=== PATIENT | female | born 1940 | race Caucasian/White ===

== ENCOUNTER → 2016-07-21 | Outpatient (CLI) | payer OTHER ==
[~2016-07-21] MED LIST: ASCO500T16 PO; ASPEC81 PO; CHOL100027 PO; CLB200 PO; IBUP-103 PO; LEVO50TA6 PO; LUTE20TA PO; MINO1CAP25 PO; MULT-506 PO; OXYSR10 PO; POLY150C4 PO; RXC5 PO; SIMV80TA2 PO; SUMA50TA15 PO; [UNRECOGNIZED DRUG - CODE] PO
[2016-07-21 10:51] LABS: ALT/SGPT 58 U/L (12-78); AST/SGOT 34 U/L (15-37); BLOOD UREA NITROGEN 20 mg/dl (7-18); BUN/CREATININE RATIO 24.9 (10-20); CALCIUM 9.2 mg/dl (8.5-10.1); CARBON DIOXIDE 28 mmol/L (21-32); CHLORIDE 105 mmol/L (98-107); CHOLESTEROL 162 mg/dl (0-200); CREATININE 0.79 mg/dl (0.60-1.20); GLUCOSE 85 mg/dl (70-99); POTASSIUM 4.1 mmol/L (3.5-5.1); SODIUM 143 mmol/L (136-145); TRIGLYCERIDES 83 mg/dl (0-150); VERY LOW DENSITY LIPOPROT CALC 17 mg/dl
[2016-07-21 11:01] LABS: HDL CHOLESTEROL 81 mg/dl; LDL CHOLESTEROL CALCULATED 64 mg/dl
== END | disposition home or self-care (01) ==
LOC: C.LAB 09:04
DX: E78.5 Hyperlipidemia, unspecified (principal); M81.0 Age-related osteoporosis without current pathological fracture

== ENCOUNTER → 2016-09-26 | Outpatient (CLI) | payer OTHER ==
--- NOTE | 2016-09-29 15:49 | MAMMOGRAPHY REPORT ---
BILATERAL DIGITAL SCREENING MAMMOGRAM WITH CAD: 09/26/2016 CLINICAL HISTORY: Routine screening. Patient has no complaints. TECHNIQUE: Bilateral CC and MLO views were obtained. Current study was also evaluated with a Compu ter Aided Detection (CAD) system. COMPARISON: Comparison is made to exams dated: 09/24/2015 mammogram, 09/18/2014 mammogram, 09/12/2013 m ammogram, 09/10/2012 mammogram, 08/29/2011 mammogram, and 08/23/2010 mammogram - [facility] enter. BREAST COMPOSITION: There are scattered areas of fibroglandular density in both breasts. FINDINGS: There is a stable metallic biopsy marker in the central right breast. A few benign rim ca lcifications bilaterally. Stable asymmetries in each lateral breast. No new suspicious mass, archi tectural distortion or cluster of microcalcifications is seen. IMPRESSION: ACR BI-RADS CATEGORY 1: NEGATIVE There is no mammographic evidence of malignancy. A 1 year screening mammogram is recommended. The p atient will receive written notification of the results. Approximately 10% of breast cancers are not detected with mammography. A negative mammographic repor t should not delay biopsy if a clinically suggestive mass is present. Carley Bean M.D. ay/:09/29/2016 15:33:21 Labor Delivery Rn: Gia MOYER(Liz)(Madisyn), [facility] letter sent: Normal 1/2 BI-RADS Code: ACR BI-RADS Category 1: Negative
== END | disposition home or self-care (01) ==
LOC: C.MAMM 11:10
DX: Z12.31 Encounter for screening mammogram for malignant neoplasm of breast (principal)

== ENCOUNTER → 2016-11-07 | Outpatient (CLI) | payer OTHER ==
[~2016-11-07] MED LIST changes: -MINO1CAP25 PO; -[UNRECOGNIZED DRUG - CODE] PO
[2016-11-07 12:19] LABS: BASO ABS # 0.08 K/uL (0-0.2); COMPLETE YES; EOS % 2.7 %; HEMATOCRIT 45.8 % (37-47); IG% 0.1 %; LYMPH % 19.1 %; LYMPH ABS # 1.48 K/uL (1.2-3.4); MEAN CELL VOLUME 99.1 fL (80-100); MEAN CORPUSCULAR HEMOGLOBIN 31.6 pg (25-34); MEAN CORPUSCULAR HGB CONC 31.9 g/dl (32-36); MEAN PLATELET VOLUME 10.3 fL (7.4-10.4); MONO % 11.3 %; NEUT % 65.8 %; PLATELET COUNT 289 K/uL (130-400); RED BLOOD COUNT 4.62 M/uL (4.2-5.4); WHITE BLOOD COUNT 7.73 K/uL (4.8-10.8)
[2016-11-07 12:58] LABS: SYNOVIAL FLUID APPEARANCE BLOODY; SYNOVIAL FLUID COLOR AMBER; SYNOVIAL FLUID MONONUC RELAT 36.7 %; SYNOVIAL FLUID POLYNUC RELAT 63.3 %
== END | disposition home or self-care (01) ==
LOC: C.LAB 10:12
PROVIDERS: ATTEND Orthopaedic Surgery
DX: M25.461 Effusion, right knee (principal)

== ENCOUNTER → 2016-11-13 | Outpatient (CLI) | payer OTHER | END | disposition home or self-care (01) | LOC: C.MAMM 08:09 | DX: M85.851 Other specified disorders of bone density and structure, right thigh (principal); M85.852 Other specified disorders of bone density and structure, left thigh ==

== ENCOUNTER 2016-11-18 09:41 | Inpatient (IN) | payer OTHER ==
[2016-10-22 09:39] VITALS: BMI 29.0
--- NOTE | 2016-10-22 10:11 | PAT Medication Instructions ---
Service Date October 22, 2016. Current Home Medication List Ascorbic Acid (Ascorbic Acid), 500 MG PO QAM Cholecalciferol (Vitamin D 1000 Unit), 1,000 INTER.UNIT PO QPM Ibuprofen Tab (Advil), 400 MG PO PRN Levothyroxine Sodium (Levothyroxine Sodium), 1 TAB PO QAM Lutein (Lutein), 20 MG PO QPM Multivitamin (Multivitamin), 1 TAB PO QPM Polysaccharide Iron Complex (Ferrex 150), 150 MG PO QPM Simvastatin (Zocor), 80 MG PO QPM Sumatriptan Succinate (Imitrex), 50 MG PO PRN Medication Instructions For Your Scheduled Surgery Lutein (Lutein), 20 MG PO QPM (hold 1 week prior to surgery) - Hold the following medications the morning of surgery: Ascorbic Acid (Ascorbic Acid), 500 MG PO QAM Ibuprofen Tab (Advil), 400 MG PO PRN (not told to stop by surgeon) - Take the following medications the morning of surgery with a sip of water: Levothyroxine Sodium (Levothyroxine Sodium), 1 TAB PO QAM Sumatriptan Succinate (Imitrex), 50 MG PO PRN (only take if absolutely needed ) - Take the following medications as scheduled the night before surgery: Simvastatin (Zocor), 80 MG PO QPM Multivitamin (Multivitamin), 1 TAB PO QPM Polysaccharide Iron Complex (Ferrex 150), 150 MG PO QPM Cholecalciferol (Vitamin D 1000 Unit), 1,000 INTER.UNIT PO QPM If you have any questions please call us at [phone] or [phone] ( [place]) or [phone]
[2016-10-22 10:37] LABS: BASO % 1.4 %; COMPLETE YES; EOS % 2.7 %; HEMATOCRIT 43.2 % (37-47); IG% 0.3 %; LYMPH % 17.1 %; LYMPH ABS # 1.25 K/uL (1.2-3.4); MEAN CELL VOLUME 98.2 fL (80-100); MEAN CORPUSCULAR HEMOGLOBIN 32.7 pg (25-34); MEAN CORPUSCULAR HGB CONC 33.3 g/dl (32-36); MEAN PLATELET VOLUME 9.9 fL (7.4-10.4); MONO % 11.1 %; NEUT % 67.4 %; PLATELET COUNT 260 K/uL (130-400); WHITE BLOOD COUNT 7.29 K/uL (4.8-10.8)
[2016-10-22 10:38] LABS: URINE APPEARANCE CLEAR (CLEAR); URINE BILIRUBIN NEG (NEG); URINE COLOR YELLOW; URINE EPITHELIAL CELL AUTO 0-5 /lpf (0-5); URINE NITRITE NEG (NEG); URINE PH 5.5 (4.5-7.5); URINE SPECIFIC GRAVITY 1.011 (1.000-1.030); UROBILINOGEN NEG (NEG)
[2016-10-22 10:42] LABS: MANUAL MICROSCOPIC REQUIRED? NO; REVIEW REQ? NO
[2016-10-22 10:47] LABS: PROTHROMBIN TIME (PATIENT) 10.7 SECONDS (9.0-12.0)
--- NOTE | 2016-10-22 10:52 | DIAGNOSTIC IMAGING REPORT ---
CHEST PREADMISSION(PA/LAT) HISTORY: Preop. COMPARISON: None. FINDINGS: A few linear densities the left lung base favor scarring or subsegmental atelectasis. The lungs are otherwise clear. No pleural effusions. No pneumothorax. The heart is normal in size. IMPRESSION: Left basilar linear densities favor scarring or subsegmental atelectasis. Otherwise, no acute process within the chest. Electronically signed by: Carlito Rasmussen M.D. 10/22/2016 10:51 AM Dictated Date/Time: 10/22/2016 10:49 AM
[2016-10-22 10:53] LABS: BUN/CREATININE RATIO 22.3 (10-20); CALCIUM 9.2 mg/dl (8.5-10.1); CREATININE 0.71 mg/dl (0.60-1.20); POTASSIUM 3.9 mmol/L (3.5-5.1)
[2016-10-22 10:56] LABS: ESTIMATED AVERAGE GLUCOSE 111 mg/dl; HA1C FLAG Normal (Normal)
[~2016-11-18] VITALS: Ht 167.6 cm; Wt 85.0 kg
[2016-11-18] VITALS (9 sets, daily range): BP systolic 118–148; BP diastolic 68–97; PULSE 55–65; TEMP 34.9–36.8; O2SAT 95–98; Ht 167.6 cm; Wt 85.0 kg
[2016-11-18] MEDS: TRANEXAMIC ACID INJ 1,000 MG in SODIUM CHLORIDE 0.9% 100ML 100 ML IV SCH ×2 (06:30→11:51)
--- NOTE | 2016-11-18 08:22 | History & Physical Bridge Note ---
H&P Re-Evaluation Bridge Note: I have examined the patient, reviewed the History & Physical and in the interval since the performance of the History & Physical I have noted the following changes of clinical significance: No changes noted
[~2016-11-18 09:41] MED LIST changes: +ACETAMINOPHEN 500 MG TAB PO SCH; -ASPEC81 PO; +ATROPINE SULFATE 0.1 MG/ML 5ML SYR IV PRN; +BUPIVACAINE 0.25% 30 ML VIAL ONE; +BUPIVACAINE 0.5 % 5 MG/1 ML PF 10ML VIAL ONE; +CEFAZOLIN 2000 MG/60 ML D5W 60 ML IV SCH; -CLB200 PO; +CeleBREX 200 MG CAP PO SCH; +DEXAMETHASONE 4 MG TAB PO SCH; +EpHEDrine SULFATE INJ 50 MG/ML AMP IV PRN; +FAMOTIDINE 20 MG TAB PO SCH; +FENTANYL CITRATE INJ 50 MCG/1 ML 2 ML VIAL IV PRN; +GABAPENTIN 300 MG CAP PO SCH; +LACTATED RINGER'S 1000ML IV SCH; +LACTATED RINGER'S 500 ML IV SCH; +METOCLOPRAMIDE HCL 10 MG TAB PO SCH; +ONDANSETRON INJ 2 MG/ML 2 ML VIAL IV PRN; -OXYSR10 PO; +ROPIVACAINE 5MG/ML 30 ML 150 MG, BUPIVACAINE/EPINEPHR 0.5% MPF 30 ML, KETOROLAC TROMETH... INFIL SCH; -RXC5 PO
[2016-11-18] MEDS ORDERED: MIDAZOLAM HCL 1 MG/ML 2ML VIAL ONE ×3 (10:00→14:32)
[2016-11-18] MEDS ORDERED: PROPOFOL IV EMULSION 10 MG/ML 20 ML VIAL IV ONE ×2 (10:00→13:35)
[2016-11-18] MEDS ORDERED: LIDOCAINE HCL 2% 2 ML VIAL (20MG/ML) ONE (10:00)
--- NOTE | 2016-11-18 11:14 | HISTORY & PHYSICAL EXAMINATION ---
DATE OF ADMISSION: 11/18/2016 HISTORY OF PRESENT ILLNESS: The patient is a 76-year-old white female who presents with complaints of pain about her right knee. She had initial right total knee arthroplasty back in 2001. 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 She has had some intermittent ongoing complaints of pain, some loosening since that period of time over the last 10 years to 12 years and presents with subsidence of tibial component and an exam consistent with that of a loosened tibial component, rule out infected total knee arthroplasty residually from a low-grade infection from back at her initial poly change. She has failed attempts at conservative management, has obvious loosening and developed a varus alignment of her knee as well as complaints of pain and swelling about her knee. PAST MEDICAL HISTORY: Otherwise, significant for hypertension, hypercholesterolemia. FAMILY HISTORY: Unremarkable and noncontributory. SOCIAL HISTORY: The patient denies history of alcohol use, smoking or recreational drug use. ALLERGIES: None. OTHER MEDICAL HISTORY: The patient has history of previous wrist fracture with open reduction, internal fixation of the wrist fracture. The patient has no other orthopedic complaints. PAST MEDICAL HISTORY: Otherwise unremarkable. See history of present illness for pertinent positives. PHYSICAL EXAMINATION: GENERAL: Reveals a very pleasant 76-year-old white female, alert and oriented x3 in no acute distress. HEAD, EYES, EARS, NOSE, AND THROAT: Atraumatic, normocephalic. HEART: Noted to be regular at 72 beats per minute. No murmurs are noted. LUNGS: Clear. No rales, rhonchi, or wheezes noted. ABDOMEN: Soft, nontender, nondistended. Bowel sounds are present in all 4 quadrants. RECTAL: No rectal examination was performed. MUSCULOSKELETAL EXAMINATION: Consistent with that of a laxity of the right knee with obvious loosened tibial component with varus and valgus laxity to stress examination. The patient has x-rays which reveal there to be evidence of subchondral lucency with subsidence of the medial component of the tibia. Patellar bone stock is noted to be good. No other abnormalities were noted. A bone scan revealed there to be evidence of increased uptake on the tibia. The patient presents for arthrotomy, possible antibiotic spacer, possible revision total knee arthroplasty. Preoperative cultures were taken 2 weeks prior as well as sed rate, C-reactive protein testing was all done preoperatively as well. All labs are available through the hospital record.
[2016-11-18] MEDS ORDERED: ORTHO JOINT ANESTHETIC ONE (11:19)
[2016-11-18] MEDS ORDERED: POVIDONE-IODINE OP SOLN 30 ML BTL ONE (11:19)
[2016-11-18] MEDS ORDERED: BACITRACIN 50000 UNIT VIAL ONE (11:19)
[2016-11-18] MEDS ORDERED: VANCOMYCIN HCL 1000MG/20ML VIAL ONE (11:21)
--- NOTE | 2016-11-18 12:12 | HISTORY & PHYSICAL EXAMINATION ---
DATE OF ADMISSION: 11/18/2016 ADDENDUM: The patient is a 76-year-old female scheduled for revision total knee arthroplasty today. The lab results of her sed rate were 3. Her serum C-reactive protein lab was within normal limits. Her aspirate from 11/07/2016 with culture and Gram stain revealed no organisms, no growth. Her bone scans have been unchanged from last bone scan 2005 with regard to any type of increased activity. The patient is afebrile, has no other complaints with regard to any type of infectious etiology, has obvious loosening of the tibial component with subsidence of varus alignment of the knee. Plan is for intraoperative Gram stain as well as intraoperative frozen sections, possible revision total knee arthroplasty versus antibiotic spacer. At this point the labs would suggest that she will be a candidate for total joint revision. This is an addendum to the H&P.
--- NOTE | 2016-11-18 14:40 | [facility] Post Operative Brief Note ---
Immediate Operative Summary Operative Date Nov 18, 2016. Pre-Operative Diagnosis Loosened Tibial Component Right Total Knee Post-Operative Diagnosis Loosened Tibial Component Right Total Knee Procedure(s) Performed Right Total Knee Revision using [facility] elias neph Surgeon Dr. Adams Culture Room Worker Surgeon(s) DRAKE Sheets Estimated Blood Loss 15 ml Findings loosenen subsided tibial components poly failure with broken postloose patella with poly failure Specimens Culture--Synovial Fluid Right Knee--sent for STAT gram stain, routine culture and sensitivity, aerobes and anaerobes--sent to lab at 1240 Frozen Section #1-- Cement Interface Right Femur--sent to lab at 1255 Frozen Section #2--Cement Tibial Interface Right--sent to lab at 1305 A. Removed Hardware Right Knee Complication(s) None Disposition Recovery Room / PACU
[2016-11-18] MEDS ORDERED: ZOLPIDEM TARTRATE 5 MG TAB PO PRN (14:45)
[2016-11-18] MEDS ORDERED: SUMATRIPTAN SUCCINATE 50 MG TAB PO PRN (14:45)
[2016-11-18] MEDS ORDERED: SOD PHOSPHATE/SOD BIPHOSPHATE ENEMA 132 ML BTL PR PRN (14:45)
[2016-11-18] MEDS ORDERED: BISACODYL 10 MG SUPP PR PRN (14:45)
[2016-11-18] MEDS ORDERED: METOCLOPRAMIDE HCL INJ 5 MG/ML 2 ML VIAL IV PRN (14:45)
[2016-11-18] MEDS ORDERED: ALUMINUM/MAGNESIUM/SIMETH (MAALOX MAX) 30 ML UDC PO PRN (14:45)
[2016-11-18] MEDS ORDERED: HYDROCODONE/ACETAMOPHEN 5/325MG TAB PO PRN (14:45)
[2016-11-18] MEDS ORDERED: MAGNESIUM HYDROXIDE SUSP 30 ML UDC PO PRN (14:45)
[2016-11-18] MEDS ORDERED: DiphenhydrAMINE HCL 50 MG/ML VIAL IV PRN (14:45)
--- NOTE | 2016-11-18 15:11 | OPERATIVE REPORT ---
DATE OF OPERATION: 11/18/2016 PREOPERATIVE DIAGNOSES: Aseptic loosening with poly failure, right total knee arthroplasty with tibial component subsidence and patellar component loosening. POSTOPERATIVE DIAGNOSES: Same. PROCEDURE: Revision total knee arthroplasty to a Legion total knee arthroplasty with revision stem size 5, femur 18 mm x 160 mm stem, 4 mm offset at 5:30 with a 10 mm posterolateral augment, tibia 5 with a 25 mm constrained poly, 15 mm stem x 160 mm with an offset of 4 mm set at 12 and a 35 mm patella. SURGEON: Dr. Adams. POPPED CORN OVEN ATTENDANT: Adarsh JUAN, who was necessary for prepping, draping, retraction, wound closure of deep fascia, subQ and skin and was necessary for the case. ESTIMATED BLOOD LOSS: 15 mL. COMPLICATIONS: None. TOURNIQUET TIME: 2 hours. HISTORY OF PRESENT ILLNESS: The patient presents as a very pleasant 76-year-old female who in 2001, had undergone total knee arthroplasty, had a poly failure and a poly change in 2004 with an encore total knee arthroplasty, today presents with subsidence for a revision. Preoperative cultures including Gram stain revealed no organisms and cultures revealed no growth. Sed rate was 3, C-reactive protein was within normal limits. Intraoperative tissue was sent for white cells per high power field. Intraoperative Gram stain revealed there to be no evidence of organisms. DESCRIPTION OF PROCEDURE: After proper prepping and draping of the right lower extremity, an anterior midline incision was made. A medial parapatellar incision was made. The components were removed. The tibial component with subsidence was loosened, the femoral component was also relatively loose, the patellar component also had fibrous material, that was removed. A thorough and complete synovectomy was performed as well as debridement of all necrotic tissue. The components having been removed were subsequently trialed to the above sizes. The tibial component was placed, had excellent fill and stability. Medial and lateral collateral ligaments were noted to be stable in extension, mid flexion and flexion. The femoral trials were placed and noted to have evidence of excellent stability. The patellar component was also removed and was replaced with a size 35 as noted above. After having performed a thorough irrigation and debridement, lavage, all particulate matter and debris was removed. The components were assembled on the back table and subsequently cemented in the following order, tibia, femur and patella. Excellent stability in both extension and flexion, mid flexion was noted. All particulate matter and debris was removed. The medial parapatellar incision was closed with #1 Vicryl, subQ was closed with 2-0 Vicryl, skin was closed with skin clips. A sterile compression dressing was placed. The patient was taken to the recovery room in stable condition. I attest to the content of the Intraoperative Record and any orders documented therein. Any exception s are noted below.
[2016-11-18] MEDS ORDERED: MoRPHine SULFATE 2 MG/ML CARP IV PRN ×2 (15:30→16:45)
[2016-11-18] MEDS ORDERED: SUMATRIPTAN SUCCINATE 25 MG TAB PO ONE (15:33)
--- NOTE | 2016-11-18 15:52 | DIAGNOSTIC IMAGING REPORT ---
RIGHT KNEE 1 OR 2 VIEWS ROUTINE CLINICAL HISTORY: AP/LATERAL IN PACU RIGHT KNEE Right joint replacement COMPARISON: None. DISCUSSION: Evidence for lung stem right knee revision type procedure. Good contact between prosthetic and underlying bone. Surgical drains are in position. Expected soft tissue postoperative change. IMPRESSION: Anatomic alignment status post total right knee revision. Electronically signed by: Ramiro Ramos M.D. 11/18/2016 3:51 PM Dictated Date/Time: 11/18/2016 3:50 PM
--- NOTE | 2016-11-18 16:12 | Anesthesiology Progress Note ---
Anesthesia Post Op Note Date & Time Nov 18, 2016 at 16:12 Vital Signs Pain Intensity: 0 Vital Signs Past 12 Hours Date Time Temp Pulse Resp B/P (MAP) Pulse Ox O2 Delivery O2 Flow Rate FiO2 11/18/16 16:04 54 17 97 11/18/16 16:04 56 17 11/18/16 16:01 125/73 11/18/16 15:59 52 15 98 11/18/16 15:59 53 15 11/18/16 15:56 129/72 11/18/16 15:54 57 17 11/18/16 15:54 56 17 96 11/18/16 15:51 115/72 11/18/16 15:49 58 14 11/18/16 15:49 57 14 96 11/18/16 15:47 37.1 57 20 120/73 (85) 96 Nasal Cannula 2 11/18/16 15:46 120/73 11/18/16 15:44 56 14 11/18/16 15:44 56 14 97 11/18/16 15:43 57 18 96 11/18/16 15:43 58 18 11/18/16 15:41 121/80 11/18/16 15:38 57 18 96 11/18/16 15:38 58 18 11/18/16 15:37 126/78 11/18/16 15:36 66 24 96 11/18/16 15:36 66 24 11/18/16 15:31 60 16 116/75 97 11/18/16 15:31 60 16 11/18/16 15:26 60 17 11/18/16 15:26 61 17 121/74 96 11/18/16 15:21 65 16 11/18/16 15:21 64 16 115/81 97 11/18/16 15:17 119/77 11/18/16 15:16 37.0 62 16 119/77 94 Nasal Cannula 2 11/18/16 10:05 36.5 65 18 142/87 96 Room Air Notes Mental Status: alert / awake / arousable, participated in evaluation Pt Amnestic to Procedure: Yes Nausea / Vomiting: adequately controlled Pain: adequately controlled Airway Patency, RR, SpO2: stable & adequate BP & HR: stable & adequate Hydration State: stable & adequate Neuraxial Anesthesia: was administered, sensory block is resolving Anesthetic Complications: no major complications apparent
[2016-11-18] MEDS ORDERED: MoRPHine SULFATE 4 MG/ML 1 ML CARP\\VIAL IV PRN (16:45)
[2016-11-18] MEDS ORDERED: MoRPHine SULFATE 10 MG/ML CARP/VIAL IV PRN (16:45)
[2016-11-18] MEDS: SODIUM CHLORIDE 0.9% 1000ML 1,000 ML IV SCH ×2 (17:08→23:57)
[2016-11-18] MEDS: OXYCODONE HCL IR 5 MG TAB (IMMEDIATE RELEASE) PO PRN (17:12)
[2016-11-18] MEDS: FERROUS GLUCONATE 324 MG TAB PO SCH (17:52)
[2016-11-18] MEDS: ONDANSETRON INJ 2 MG/ML 2 ML VIAL IV PRN (18:32)
[2016-11-18] MEDS: CEFAZOLIN IV 2,000 MG in DEXTROSE 5% 50ML 50 ML IV SCH (20:18)
[2016-11-18] MEDS ORDERED: TRANEXAMIC ACID INJ 1,000 MG in SODIUM CHLORIDE 0.9% 100ML 100 ML IV ONE (21:00)
[2016-11-18] MEDS: DOCUSATE SODIUM 100 MG CAP PO SCH (21:00)
[2016-11-18] MEDS: MULTIVITAMIN TAB PO SCH (21:10)
[2016-11-18] MEDS: ASPIRIN 81 MG ECTAB PO SCH (21:10)
[2016-11-18] MEDS: OXYCODONE HCL 10 MG TABCR (OXYCONTIN) PO SCH (21:10)
[2016-11-18] MEDS: SIMVASTATIN 80 MG TAB PO SCH (21:11)
[2016-11-18] MEDS: SENNA 8.6 MG TAB PO SCH (21:11)
[2016-11-19] MEDS: CEFAZOLIN IV 2,000 MG in DEXTROSE 5% 50ML 50 ML IV SCH (03:19)
[2016-11-19 03:30] VITALS: BP 124/72; PULSE 61; TEMP 36.6; O2SAT 92
[2016-11-19] MEDS: LEVOTHYROXINE 50 MCG TAB PO SCH (05:27)
[2016-11-19 06:17] LABS: HEMATOCRIT 37.2 % (37-47); MEAN CELL VOLUME 98.4 fL (80-100); MEAN CORPUSCULAR HGB CONC 32.5 g/dl (32-36); MEAN PLATELET VOLUME 10.1 fL (7.4-10.4); PLATELET COUNT 206 K/uL (130-400); RED BLOOD COUNT 3.78 M/uL (4.2-5.4); WHITE BLOOD COUNT 14.22 K/uL (4.8-10.8)
[2016-11-19 07:41] VITALS: BP 113/74; PULSE 60; TEMP 36.6; O2SAT 94
--- NOTE | 2016-11-19 08:14 | Anesthesiology Progress Note ---
Anesthesia Post Op Note Date & Time Nov 19, 2016 at 08:14 Vital Signs Pain Intensity: 4.0 Vital Signs Past 12 Hours Date Time Temp Pulse Resp B/P (MAP) Pulse Ox O2 Delivery O2 Flow Rate FiO2 11/19/16 07:41 36.6 60 19 113/74 (87) 94 Room Air 11/19/16 03:30 36.6 61 18 124/72 (89) 92 Room Air 11/18/16 23:54 Room Air 11/18/16 22:47 36.7 63 16 118/75 (89) 95 Room Air Notes Mental Status: alert / awake / arousable, participated in evaluation Pt Amnestic to Procedure: Yes Nausea / Vomiting: adequately controlled Pain: adequately controlled Airway Patency, RR, SpO2: stable & adequate BP & HR: stable & adequate Hydration State: stable & adequate Neuraxial Anesthesia: was administered, sensory block resolved Anesthetic Complications: no major complications apparent
[2016-11-19] MEDS: FERROUS GLUCONATE 324 MG TAB PO SCH ×3 (08:19→17:45)
[2016-11-19] MEDS: DOCUSATE SODIUM 100 MG CAP PO SCH ×2 (08:20→20:45)
[2016-11-19] MEDS: PANTOprazole SOD 40 MG TAB PO SCH (08:20)
[2016-11-19] MEDS: ASPIRIN 81 MG ECTAB PO SCH ×2 (08:20→20:45)
[2016-11-19] MEDS: ONDANSETRON INJ 2 MG/ML 2 ML VIAL IV PRN (08:25)
[2016-11-19] MEDS: OXYCODONE HCL 10 MG TABCR (OXYCONTIN) PO SCH ×2 (08:25→20:46)
[2016-11-19] MEDS: OXYCODONE HCL IR 5 MG TAB (IMMEDIATE RELEASE) PO PRN (08:26)
--- NOTE | 2016-11-19 08:59 | Orthopedic Progress Note ---
Orthopedic Progress Note Date of Service Nov 19, 2016. Subjective Post OP Day: 1 Reports: feeling well, Denies: chest pain, SOB, nausea / vomiting, light headedness, calf pain Objective calves soft nontender, N/V intact, dressing C/D/I, A&O x3, toes mobile, hemovac drainage (100ml latest shift) Date Time Temp Pulse Resp B/P (MAP) Pulse Ox O2 Delivery O2 Flow Rate FiO2 11/19/16 07:41 36.6 60 19 113/74 (87) 94 Room Air 11/19/16 07:10 Room Air 11/19/16 03:30 36.6 61 18 124/72 (89) 92 Room Air 11/18/16 23:54 Room Air 11/18/16 22:47 36.7 63 16 118/75 (89) 95 Room Air 11/18/16 19:19 36.5 55 16 127/74 (91) 97 Nasal Cannula 2.0 11/18/16 18:45 97 Nasal Cannula 2.0 11/18/16 18:15 36.8 56 16 119/72 (88) 97 Nasal Cannula 2.0 11/18/16 17:14 36.3 65 16 148/97 (114) 98 Nasal Cannula 2.0 11/18/16 16:45 34.9 63 16 130/84 (99) 97 Nasal Cannula 2.0 11/18/16 16:36 36.4 60 18 120/68 (85) 98 Nasal Cannula 2.0 11/18/16 16:35 98 Nasal Cannula 2.0 11/18/16 16:33 98 Nasal Cannula 2.0 11/18/16 16:04 54 17 97 11/18/16 16:04 56 17 11/18/16 16:01 125/73 11/18/16 15:59 52 15 98 11/18/16 15:59 53 15 11/18/16 15:56 129/72 11/18/16 15:54 57 17 11/18/16 15:54 56 17 96 11/18/16 15:51 115/72 11/18/16 15:49 58 14 11/18/16 15:49 57 14 96 11/18/16 15:47 37.1 57 20 120/73 (85) 96 Nasal Cannula 2 11/18/16 15:46 120/73 11/18/16 15:44 56 14 11/18/16 15:44 56 14 97 11/18/16 15:43 57 18 96 11/18/16 15:43 58 18 11/18/16 15:41 121/80 11/18/16 15:38 57 18 96 11/18/16 15:38 58 18 11/18/16 15:37 126/78 11/18/16 15:36 66 24 96 11/18/16 15:36 66 24 11/18/16 15:31 60 16 116/75 97 11/18/16 15:31 60 16 11/18/16 15:26 60 17 11/18/16 15:26 61 17 121/74 96 11/18/16 15:21 65 16 11/18/16 15:21 64 16 115/81 97 11/18/16 15:17 119/77 11/18/16 15:16 37.0 62 16 119/77 94 Nasal Cannula 2 11/18/16 10:05 36.5 65 18 142/87 96 Room Air Laboratory Results 24 Hours: Test 11/19/16 05:47 Hematocrit 37.2 % Hemoglobin 12.1 g/dL Additional Notes: Intra op Cx NGTD Assessment & Plan Assessment: POD 1 s/p Right TKA Revision Plan: PT/OT Planning for OPPT at [facility] Follow cx's but previous cx's negative, ESR/CRP normal. Inhouse Planning Pain Management: Oxycontin, Morphine, PO Tylenol, Oxy IR DVT Prophylaxis: TEDs, SCDs, ASA Discharge Planning Discharge Planning: home with oppt Pain Management: Oxycontin, IV Tylenol, PO Tylenol, Oxy IR DVT Prophylaxis: TEDs, ASA Therapy: Physical Therapy
[2016-11-19] MEDS ORDERED: MULTIVITAMIN TAB PO SCH (09:00)
--- NOTE | 2016-11-19 09:08 | Discharge Instructions ---
Discharge Instructions Date of Service Nov 19, 2016. Admission Reason for Admission: Mechanical Loosening of Internal Right Knee Prosth Discharge Discharge Diagnosis / Problem: Aseptic Loosening Right TKA Discharge Goals Goal(s): Decrease discomfort, Improve function Activity Recommendations Activity Limitations: per Instructions/Follow-up section Weightbearing Status: Right weightbearing (as tolerated) . Instructions / Follow-Up Instructions / Follow-Up ACTIVITY RECOMMENDATIONS: SELF CARE INSTRUCTIONS AFTER TOTAL KNEE REPLACEMENT A. You may need to continue a physical therapy program after discharge from the hospital. There are several options available to you. Your doctor will assist you in selecting the best one for you. 1. An out-patient facility 2 to 3 times a week for therapy or home therapy. 2. Continue working on all exercises taught to you in the hospital. Your goals should be to increase bending of your knee to 90 degrees and beyond and to fully straighten your knee. B. You may progress at your own pace from walking with a walker or crutches to a cane; then to no assistive devices. C. Make walking a part of your daily routine. Be up as much as comfortable with rest periods throughout the day. Rest with leg elevation is very important. Use the ice wrap frequently for the first 3-4 weeks. D. There are no restrictions on activities. You may ride in a car, shop, participate in youth counselor and all social activities. E. Wear the long elastic stockings (CHRIS hose) 20 hours a day for 2 weeks after surgery. They can be removed several times a day for laundering and for a bath. F. You may shower, no tub baths until cleared by your doctor. SPECIAL CARE INSTRUCTIONS: VERY IMPORTANT TO READ AND REVIEW A. There are a few signs you need to watch for after you are home. Call [facility] if you notice any of the followin. Increased severe knee pain. Some pain is expected especially when you exercise. 2. Increased swelling in your leg or knee; pain or swelling of the calf muscle in either lower leg. 3. Any fluid drainage from the incision. 4. Shortness of breath or chest pain. B. Please call [facility] at if you have any concerns or questions about your operation or recovery. The doctor or his nurse will return your call promptly. C. You must take antibiotics before dental work, bladder, bowel or other surgery. Your doctor will provide you with a permanent care to carry describing this precaution. IMPORTANT: * REMEMBER TO TAKE ASPIRIN, 81 MG, TWICE DAILY FOR 4 WEEKS UNLESS OTHERWISE DIRECTED. THIS IS YOUR BLOOD THINNER. * HIGH RISK PATIENTS MAY BE PRESCRIBED A STRONGER BLOOD THINNER. THIS WILL BE PROVIDED AT DISCHARGE. * CALL IF INCREASED PAIN, REDNESS, DRAINAGE OR FEVER GREATER THAT 101. * WEAR CHRIS HOSE 20 HOURS PER DAY FOR 2 WEEKS. * Prevena- This is a large suction dressing covering your incision. This will help pull any excess drainage from the wound and allow your incision to heal properly. You may shower with this if you can keep the unit outside of the shower. If any bleeding or leakage is noted please call your doctor's office. This will remain on your incision for 7 days and then should be removed. This can be done yourself or by the home nursing staff if applicable. The entire unit is disposable once removed. Once removed, keep incision clean and dry. If redness or drainage is noted, please call your surgeon. . FOLLOW UP VISIT: If appointment is not already scheduled: Please call [facility] to make a follow-up appointment for 2 weeks after your surgery at . Current Hospital Diet Patient's current hospital diet: Regular Diet Discharge Diet Recommended Diet: Regular Diet Procedures Procedures Performed: Right Total Knee Revision using [facility] elias nephew Pending Studies Studies pending at discharge: yes List of pending studies: Intra operative cultures; Current results No Growth to Date Laboratory Results Hemoglobin A1c Test 10/22/16 10:15 Range/Units Estimated Average Glucose 111 mg/dl Hemoglobin A1c 5.5 4.5-5.6 % Medical Emergencies . Who to Call and When: Medical Emergencies: If at any time you feel your situation is an emergency, please call 911 immediately. . Non-Emergent Contact Non-Emergency issues call your: Surgeon Call Non-Emergent contact if: temperature is above 101.5, your pain is not controlled, your pain is worsening, wound has increased drainage, wound has increased redness . "Provider Documentation" section prepared by Adarsh Navarro. . VTE Core Measure Inpt VTE Proph given/why not?: Other Anticoagulation, T.E.D. Stockings, SCD's [place] Drug Monitoring Program Search Results: patient reviewed within database, no issues identified
[2016-11-19] MEDS: SODIUM CHLORIDE 0.9% 1000ML 1,000 ML IV SCH (10:24)
[2016-11-19 15:39] VITALS: BP 111/69; PULSE 71; TEMP 36.5; O2SAT 97
[2016-11-19] MEDS: TRAMADOL HCL 50 MG TAB PO PRN (16:55)
[2016-11-19] MEDS: KETOROLAC TROMETHAMINE 15 MG/ML VIAL IV PRN (18:20)
[2016-11-19] MEDS: SENNA 8.6 MG TAB PO SCH (21:08)
[2016-11-19] MEDS: SIMVASTATIN 80 MG TAB PO SCH (21:08)
[2016-11-19] MEDS: MULTIVITAMIN TAB PO SCH (21:08)
[2016-11-19 22:48] VITALS: BP 117/71; PULSE 70; TEMP 36.7; O2SAT 93
[2016-11-20] MEDS: LEVOTHYROXINE 50 MCG TAB PO SCH (05:26)
[2016-11-20 06:20] VITALS: BP 146/83; PULSE 79; TEMP 37; O2SAT 93
[2016-11-20 06:22] LABS: BUN/CREATININE RATIO 25.4 (10-20); CALCIUM 7.7 mg/dl (8.5-10.1); CREATININE 0.55 mg/dl (0.60-1.20); POTASSIUM 4.1 mmol/L (3.5-5.1)
[2016-11-20] MEDS: FERROUS GLUCONATE 324 MG TAB PO SCH ×2 (07:43→12:07)
[2016-11-20] MEDS: PANTOprazole SOD 40 MG TAB PO SCH (07:44)
[2016-11-20] MEDS: OXYCODONE HCL 10 MG TABCR (OXYCONTIN) PO SCH (07:44)
[2016-11-20] MEDS: TRAMADOL HCL 50 MG TAB PO PRN (07:49)
[2016-11-20 08:00] VITALS: BP 150/80; PULSE 66; TEMP 36.6; O2SAT 96
[2016-11-20 08:03] VITALS: O2SAT 96
[2016-11-20] MEDS: DOCUSATE SODIUM 100 MG CAP PO SCH (09:19)
[2016-11-20] MEDS: ASPIRIN 81 MG ECTAB PO SCH (09:20)
[2016-11-20] MEDS: KETOROLAC TROMETHAMINE 15 MG/ML VIAL IV PRN (09:22)
[2016-11-20 12:35] VITALS: BP 150/80; PULSE 66; TEMP 36.6; O2SAT 96
--- NOTE | 2016-11-20 12:59 | Orthopedic Progress Note ---
Orthopedic Progress Note Date of Service Nov 20, 2016. Subjective Post OP Day: 2 Reports: feeling well Objective calves soft nontender, N/V intact, dressing C/D/I (Prevena in place), toes mobile Date Time Temp Pulse Resp B/P (MAP) Pulse Ox O2 Delivery O2 Flow Rate FiO2 11/20/16 12:35 36.6 66 14 96 Room Air 11/20/16 08:03 96 Room Air 11/20/16 08:00 36.6 66 14 150/80 (103) 96 Room Air 11/20/16 07:35 Room Air 11/20/16 06:20 37.0 79 16 146/83 (104) 93 Room Air 11/19/16 23:00 Room Air 11/19/16 22:48 36.7 70 16 117/71 (86) 93 Room Air 11/19/16 17:15 Room Air 11/19/16 15:39 36.5 71 18 111/69 (83) 97 Room Air Assessment & Plan Assessment: POD 2 s/p Right TKA Revision Plan: PT/OT Planning for OPPT at [facility] Follow cx's but previous cx's negative, ESR/CRP normal. Inhouse Planning Pain Management: Oxycontin, Morphine, PO Tylenol, Oxy IR DVT Prophylaxis: TEDs, SCDs, ASA Discharge Planning Discharge Planning: home with oppt Pain Management: Oxycontin, IV Tylenol, PO Tylenol, Oxy IR DVT Prophylaxis: TEDs, ASA Therapy: Physical Therapy
[2016-11-20] MEDS ORDERED: RXC5 PO (13:00)
[2016-11-20] MEDS ORDERED: CLB200 PO (13:00)
[2016-11-20] MEDS ORDERED: ASPEC81 PO (13:00)
[2016-11-20] MEDS ORDERED: OXYSR10 PO (13:00)
--- NOTE | 2016-11-24 14:08 | DISCHARGE SUMMARY ---
DISCHARGE DIAGNOSIS: Aseptic loosening of right TKA. SECONDARY DIAGNOSES: Hypertension, hypercholesterolemia. CONSULTS: None. COMPLICATIONS: None. PROCEDURES: Right total knee revision by Dr. Adams on 11/18/2016. BRIEF HISTORY: As dictated in history and physical. HOSPITAL SUMMARY: The patient was admitted on the above-noted date and had the above-noted surgery performed which she tolerated well. On her first postoperative day, she was feeling well and had no complaints. Calves were soft and nontender, neurovascularly intact. Dressings clean, dry and intact. Toes were mobile. Vital signs were stable and she was afebrile. Hemoglobin was 12.1 and she was started on physical therapy protocol and continued on DVT prophylaxis and pain management. Intraoperative cultures that were taken during the procedure were no growth to date. The patient was planning for outpatient PT upon discharge and she was continued on her protocol. The rest of her stay was essentially uneventful and by 11/20/2016 she was feeling well. Calves were soft and nontender, neurovascularly intact. Dressings clean, dry and intact. Toes were mobile. Vital signs were stable and she did have a noted bump in her systolic blood pressure of 150 at one point in time but was otherwise remaining stable. She was progressing with her physical therapy and it was felt that she was stable for discharge to home. For further review, please see chart. LAB AND X-RAY DATA: As per chart. DISCHARGE INSTRUCTIONS: The patient was discharged to home in satisfactory condition on 11/20/2016. DIET: Regular. ACTIVITY: Weightbearing as tolerated right lower extremity. Follow TK instruction sheets and special care instructions as noted. Follow up with Dr. Adams in 2 weeks. The patient to call for appointment if one has not been made for you. DISCHARGE MEDICATIONS: Aspirin 81 mg p.o. b.i.d., Celebrex 200 mg p.o. b.i.d., OxyContin 10 mg p.o. q. 12 hours, oxycodone 5-10 mg p.o. q. 4-6 hours p.r.n. pain. Resume home meds as listed and continue medication section and stop taking ibuprofen.
[2016-11-24] MEDS ORDERED: CeleBREX 200 MG CAP PO SCH (21:00)
== END 2016-11-20 14:05 | disposition home or self-care (01) | DRG 468 ==
LOC: C.ACU 09:41 → C.3E 10:00 → ENRESERV 15:40
PROVIDERS: ADMIT Orthopaedic Surgery; ATTEND Orthopaedic Surgery
PROC: 0SRC0J9 Replacement of Right Knee Joint with Synthetic Substitute, Cemented, Open Approach (ICD-10-PCS; principal; 2016-11-18 11:30)
PROC: 0SPC09Z Removal of Liner from Right Knee Joint, Open Approach (ICD-10-PCS; principal; 2016-11-18 11:30)
PROC: 0SPC0JZ Removal of Synthetic Substitute from Right Knee Joint, Open Approach (ICD-10-PCS; principal; 2016-11-18 11:30)
PROC: 0SUV09Z Supplement Right Knee Joint, Tibial Surface with Liner, Open Approach (ICD-10-PCS; principal; 2016-11-18 11:30)
DX: T84.092A Other mechanical complication of internal right knee prosthesis, initial encounter (principal); Y79.2 Prosthetic and other implants, materials and accessory orthopedic devices associated with adverse incidents; M25.261 Flail joint, right knee; E78.00 Pure hypercholesterolemia, unspecified; I83.10 Varicose veins of unspecified lower extremity with inflammation; M19.90 Unspecified osteoarthritis, unspecified site; G43.909 Migraine, unspecified, not intractable, without status migrainosus; M85.80 Other specified disorders of bone density and structure, unspecified site; Z79.899 Other long term (current) drug therapy

== ENCOUNTER → 2017-01-19 | Outpatient (CLI) | payer OTHER ==
[~2017-01-19] MED LIST changes: -ACETAMINOPHEN 500 MG TAB PO SCH; +ASPEC81 PO; -ATROPINE SULFATE 0.1 MG/ML 5ML SYR IV PRN; -BUPIVACAINE 0.25% 30 ML VIAL ONE; -BUPIVACAINE 0.5 % 5 MG/1 ML PF 10ML VIAL ONE; -CEFAZOLIN 2000 MG/60 ML D5W 60 ML IV SCH; +CLB200 PO; -CeleBREX 200 MG CAP PO SCH; -DEXAMETHASONE 4 MG TAB PO SCH; -EpHEDrine SULFATE INJ 50 MG/ML AMP IV PRN; -FAMOTIDINE 20 MG TAB PO SCH; -FENTANYL CITRATE INJ 50 MCG/1 ML 2 ML VIAL IV PRN; -GABAPENTIN 300 MG CAP PO SCH; -IBUP-103 PO; -LACTATED RINGER'S 1000ML IV SCH; -LACTATED RINGER'S 500 ML IV SCH; -METOCLOPRAMIDE HCL 10 MG TAB PO SCH; -ONDANSETRON INJ 2 MG/ML 2 ML VIAL IV PRN; +OXYSR10 PO; -ROPIVACAINE 5MG/ML 30 ML 150 MG, BUPIVACAINE/EPINEPHR 0.5% MPF 30 ML, KETOROLAC TROMETH... INFIL SCH; +RXC5 PO
[2017-01-19 10:47] LABS: ALT/SGPT 91 U/L (12-78); AST/SGOT 81 U/L (15-37)
== END | disposition home or self-care (01) ==
LOC: C.LAB 09:14
DX: E78.5 Hyperlipidemia, unspecified (principal)

== ENCOUNTER → 2017-02-25 | Outpatient (CLI) | payer OTHER | END | disposition home or self-care (01) | LOC: C.LAB 09:14 | DX: M85.80 Other specified disorders of bone density and structure, unspecified site (principal); E78.5 Hyperlipidemia, unspecified; R74.0 Nonspecific elevation of levels of transaminase and lactic acid dehydrogenase [LDH] ==

== ENCOUNTER → 2017-06-17 | Day surgery (SDC) | payer OTHER ==
[~2017-06-17] VITALS: Ht 170.2 cm; Wt 86.4 kg
[~2017-06-17] MED LIST changes: -ASPEC81 PO; +ASPI1TAB4 PO; +CALC600T37 PO; -CLB200 PO; -OXYSR10 PO; -RXC5 PO
[2017-06-17 08:52] VITALS: Ht 170.2 cm; Wt 86.4 kg
--- NOTE | 2017-06-17 09:19 | Endo History and Physical ---
History & Physical Date of Service: Jun 17, 2017. Chief Complaint: HX OF COLON POLYPS Referring Physician: DR. JUAN PANDYA History of Present Illness 77 yo CF who presents for colonoscopy secondary to history of colon polyps. Past Surgical History Hx Cardiac Surgery: No Hx Internal Defibrillator: No Hx Pacemaker: No Hx Abdominal Surgery: No Hx of Implantable Prosthesis: No Hx Post-Op Nausea and Vomiting: No Hx Cancer Surgery: No Hx Thoracic Surgery: No Hx Orthopedic: Yes (RT TKA AND X2 REVISIONS, LT WRIST SURGERY) Hx Urinary Tract Surgery: No Family History Polyp Social History Smoking Status: Never Smoker Hx Substance Use: No Hx Alcohol Use: Yes (1 GLASS WINE/NIGHT) Allergies Coded Allergies: Oxycodone (Verified Adverse Reaction, Unknown, GI UPSET, 05/26/17) Current Medications Reported Home Medications Medications Dose Route/Sig Max Daily Dose Days Date Category Janet Back & Body Pain Ex (Aspirin-Caffeine) 1 Tab Tab 1 Tab PO QAM 05/26/17 Reported Calcium 600 Mg Tab 1 Tab PO DAILY 05/26/17 Reported Levothyroxine Sodium 50 Mcg Tab 1 Tab PO QAM 10/22/16 Reported Multivitamin (Multivitamins) Tab 1 Tab PO QPM 10/22/16 Reported Imitrex (Sumatriptan Succinate) 50 Mg Tab 50 Mg PO PRN PRN 10/22/16 Reported Ferrex 150 (Polysaccharide Iron Complex) 150 Mg Cap 150 Mg PO QPM 03/10/15 Reported Vitamin D 1000 Unit (Cholecalciferol) 1,000 Unit Cap 1,000 Inter.unit PO QPM 03/10/15 Reported Ascorbic Acid 500 Mg Tab 500 Mg PO QAM 03/10/15 Reported Lutein 20 Mg Tab 20 Mg PO QPM 03/10/15 Reported Zocor (Simvastatin) 80 Mg Tab 80 Mg PO QPM 03/10/15 Reported Vital Signs Weight (Kilograms): 86.36 Height (Feet): 5 Height (Inches): 7 Date Time Temp Pulse Resp B/P (MAP) Pulse Ox O2 Delivery O2 Flow Rate FiO2 06/17/17 08:54 36.4 64 16 157/90 (112) 96 Room Air Physical Exam General Appearance: WD/WN, no apparent distress Respiratory/Chest: Auscultation: breath sounds normal Cardiovascular: Heart Auscultation: RRR Abdomen: Bowel Sounds: normal Inspection & Palpation: soft, non-distended, no tenderness, guarding & rebound Assessment and Plan Assessment: 77 yo CF who presents for colonoscopy secondary to history of colon polyps. Plan: Proceed with colonoscopy.
--- NOTE | 2017-06-17 10:04 | Discharge Instructions ---
Endoscopy Patient Instructions Date / Procedure(s) Performed Jun 17, 2017. Colonoscopy Allergy Information Coded Allergies: Oxycodone (Verified Adverse Reaction, Unknown, GI UPSET, 05/26/17) Discharge Date / Findings Jun 17, 2017. Colon polyp Diverticulosis Internal hemorrhoids Medication Instructions OK to resume all medications today as prescribed Reported Home Medications Medications Dose Route/Sig Max Daily Dose Days Date Category Janet Back & Body Pain Ex (Aspirin-Caffeine) 1 Tab Tab 1 Tab PO QAM 05/26/17 Reported Calcium 600 Mg Tab 1 Tab PO DAILY 05/26/17 Reported Levothyroxine Sodium 50 Mcg Tab 1 Tab PO QAM 10/22/16 Reported Multivitamin (Multivitamins) Tab 1 Tab PO QPM 10/22/16 Reported Imitrex (Sumatriptan Succinate) 50 Mg Tab 50 Mg PO PRN PRN 10/22/16 Reported Ferrex 150 (Polysaccharide Iron Complex) 150 Mg Cap 150 Mg PO QPM 03/10/15 Reported Vitamin D 1000 Unit (Cholecalciferol) 1,000 Unit Cap 1,000 Inter.unit PO QPM 03/10/15 Reported Ascorbic Acid 500 Mg Tab 500 Mg PO QAM 03/10/15 Reported Lutein 20 Mg Tab 20 Mg PO QPM 03/10/15 Reported Zocor (Simvastatin) 80 Mg Tab 80 Mg PO QPM 03/10/15 Reported Provider Instructions Activity Restrictions - No exercising or heavy lifting for 24 hours. - Do not drink alcohol the day of the procedure. - Do not drive a car or operate machinery until the day after the procedure. - Do not make any important decisions or sign important papers in 24 hours after the procedure. Following Day: - Return to full activity which may include returning to work/school. Diet Start your diet with liquids and light foods (jello, soup, juice, toast). Then eat your usual diet if not nauseated. Treatment For Common After Affects For mild abdominal pain, bloating, or excessive gas: - Rest - Eat lightly - Lie on right side Follow-Up Information Follow-up with DR. JUAN PANDYA as scheduled Anesthesia Information What You Should Know You have had a procedure that required some medicine to reduce anxiety and discomfort. This treatment is called moderate sedation. After receiving the treatment, you may be sleepy, but you will be able to breathe on your own. The effects of the treatment may last for several hours. Follow these instructions along with Activity/Diet recommendations noted above: * Do NOT do anything where dizziness or clumsiness would be dangerous. * Rest quietly at home today, then you can be up and about tomorrow. * Have a responsible person stay with you the rest of today. * You may have had an I.V. today. If so, you may take the dressing off later today. Recommendations Call your doctor if: * Trouble breathing * Continuous vomiting for more than 24 hours * Temperature above 101 degrees * Severe abdominal pain or bloating * Pain not relieved by pain medicine ordered * There is increased drainage or redness from any incision * A large amount of rectal bleeding greater than 2-3 tablespoons. (If you had a polyp/s removed or have hemorrhoids, a small amount of blood - from the rectum is to be expected.) * You have any unanswered questions or concerns. IN THE EVENT OF A SERIOUS EMERGENCY, GO TO THE NEAREST EMERGENCY ROOM Your discharge instructions were prepared by provider Palu Schrader. Patient Instructions Signature Page Yessica Dhillon Patient (or Guardian) Signature/Date: I have read and understand the instructions given to me by my caregivers. Caregiver/RN/Doctor Signature/Date: The above-named patient and/or guardian has received patient instructions on this date. + Original Patient Signature Page (only) stays with chart. Please make copy for patient.
--- NOTE | 2017-06-17 10:11 | GI REPORT ---
Procedure Date: 06/17/2017 9:31 AM Procedure: Colonoscopy Indications: High risk colon cancer surveillance: Personal history of colonic polyps Medicines: Monitored Anesthesia Care Complications: No immediate complications. Estimated Blood Loss: Estimated blood loss: none. Procedure: Pre-Anesthesia Assessment: - Prior to the procedure, a History and Physical was performed, and patient medications and allergies were reviewed. The patient's tolerance of previous anesthesia was also reviewed. The risks and benefits of the procedure and the sedation options and risks were discussed with the patient. All questions were answered, and informed consent was obtained. Prior Anticoagulants: The patient has taken aspirin, last dose was 1 day prior to procedure. ASA Grade Assessment: II - A patient with mild systemic disease. After reviewing the risks and benefits, the patient was deemed in satisfactory condition to undergo the procedure. After I obtained informed consent, the scope was passed under direct vision. Throughout the procedure, the patient's blood pressure, pulse, and oxygen saturations were monitored continuously. The Scope was introduced through the anus and advanced to the terminal ileum. The colonoscopy was performed without difficulty. The patient tolerated the procedure well. The quality of the bowel preparation was good. The terminal ileum, ileocecal valve, appendiceal orifice, and rectum were photographed. Findings: A 4 mm polyp was found in the ascending colon. The polyp was sessile. The polyp was removed with a cold snare. Resection and retrieval were complete. Multiple small-mouthed diverticula were found in the sigmoid colon. Non-bleeding internal hemorrhoids were found during retroflexion. The hemorrhoids were small. Impression: - One 4 mm polyp in the ascending colon, removed with a cold snare. Resected and retrieved. - Diverticulosis in the sigmoid colon. - Non-bleeding internal hemorrhoids. Recommendation: - Resume previous diet. - Continue present medications. - Repeat colonoscopy for surveillance based on pathology results. - Return to primary care physician as previously scheduled. Paul Schrader, DO 06/17/2017 10:10:39 AM This report has been signed electronically. Note Initiated On: 06/17/2017 9:31 AM I attest to the content of the Intraoperative Record and orders documented therein, exceptions below
[2017-06-17 10:28] VITALS: BP 157/99; PULSE 62; O2SAT 98
--- NOTE | 2017-06-17 10:58 | Anesthesiology Progress Note ---
Anesthesia Post Op Note Date & Time Jun 17, 2017 at 10:58 Vital Signs Pain Intensity: 0 Vital Signs Past 12 Hours Date Time Temp Pulse Resp B/P (MAP) Pulse Ox O2 Delivery O2 Flow Rate FiO2 06/17/17 10:28 62 18 157/99 (118) 98 Room Air 06/17/17 10:13 60 16 127/82 (97) 98 Room Air 06/17/17 09:58 64 16 93/60 (71) 98 Room Air 06/17/17 08:54 36.4 64 16 157/90 (112) 96 Room Air Notes Mental Status: alert / awake / arousable, participated in evaluation Pt Amnestic to Procedure: Yes Nausea / Vomiting: adequately controlled Pain: adequately controlled Airway Patency, RR, SpO2: stable & adequate BP & HR: stable & adequate Hydration State: stable & adequate Anesthetic Complications: no major complications apparent
== END | disposition home or self-care (01) ==
LOC: C.GI 08:30
PROVIDERS: ATTEND Internal Medicine
DX: Z12.11 Encounter for screening for malignant neoplasm of colon (principal); D12.2 Benign neoplasm of ascending colon; K57.30 Diverticulosis of large intestine without perforation or abscess without bleeding; K64.8 Other hemorrhoids; Z86.010 Personal history of colon polyps; M19.90 Unspecified osteoarthritis, unspecified site; Z88.5 Allergy status to narcotic agent; Z96.651 Presence of right artificial knee joint; Z98.890 Other specified postprocedural states; Z83.71 Family history of colonic polyps

== ENCOUNTER → 2017-07-17 | Outpatient (CLI) | payer OTHER ==
[2017-07-17 10:11] LABS: BASO % 1.5 %; BASO ABS # 0.09 K/uL (0-0.2); EOS % 3.2 %; EOS ABS # 0.19 K/uL (0-0.5); HEMOGLOBIN 14.8 g/dL (12.0-16.0); IG# 0.02 K/uL (0.00-0.02); LYMPH % 24.2 %; LYMPH ABS # 1.43 K/uL (1.2-3.4); MEAN CELL VOLUME 96.7 fL (80-100); MEAN CORPUSCULAR HEMOGLOBIN 32.5 pg (25-34); MEAN CORPUSCULAR HGB CONC 33.6 g/dl (32-36); MEAN PLATELET VOLUME 10.3 fL (7.4-10.4); MONO ABS # 0.59 K/uL (0.11-0.59); NEUT % 60.8 %; NEUT ABS # 3.59 K/uL (1.4-6.5); PLATELET COUNT 219 K/uL (130-400); RED CELL DISTRIBUTION WIDTH CV 13.4 % (11.5-14.5); RED CELL DISTRIBUTION WIDTH SD 47.7 fL (36.4-46.3); WHITE BLOOD COUNT 5.91 K/uL (4.8-10.8)
[2017-07-17 10:39] LABS: ALT/SGPT 43 U/L (12-78); AST/SGOT 42 U/L (15-37); BLOOD UREA NITROGEN 15 mg/dl (7-18); CALCIUM 8.9 mg/dl (8.5-10.1); CARBON DIOXIDE 26 mmol/L (21-32); CHOLESTEROL 155 mg/dl (0-200); CREATININE 0.68 mg/dl (0.60-1.20); GLUCOSE 89 mg/dl (70-99); POTASSIUM 4.1 mmol/L (3.5-5.1); SODIUM 140 mmol/L (136-145)
[2017-07-17 10:49] LABS: LDL CHOLESTEROL CALCULATED 73 mg/dl
== END | disposition home or self-care (01) ==
LOC: C.LAB 09:19
DX: E78.5 Hyperlipidemia, unspecified (principal); E03.9 Hypothyroidism, unspecified; M19.90 Unspecified osteoarthritis, unspecified site

== ENCOUNTER → 2017-09-29 | Outpatient (CLI) | payer OTHER ==
[~2017-09-29] MED LIST changes: -ASPI1TAB4 PO
--- NOTE | 2017-09-29 14:24 | MAMMOGRAPHY REPORT ---
BILATERAL DIGITAL SCREENING MAMMOGRAM TOMOSYNTHESIS WITH CAD: 09/29/2017 CLINICAL HISTORY: Routine screening. TECHNIQUE: Breast tomosynthesis in addition to standard 2D mammography was performed. Current study was also evaluated with a Computer Aided Detection (CAD) system. COMPARISON: Comparison is made to exams dated: 09/26/2016 mammogram, 09/24/2015 mammogram, 09/18/2014 m ammogram, 09/12/2013 mammogram, 09/10/2012 mammogram, and 08/29/2011 mammogram - [facility]. BREAST COMPOSITION: There are scattered areas of fibroglandular density in both breasts. FINDINGS: There is stable focal asymmetry in the 6:00/central left breast, and stable asymmetry in th e lateral right breast. A stable metallic biopsy marker clip is identified in the central right [address] and there are a few benign round and rim calcifications. No suspicious mass, architectural distor tion or cluster of microcalcifications is seen. IMPRESSION: ACR BI-RADS CATEGORY 1: NEGATIVE There is no mammographic evidence of malignancy. A 1 year screening mammogram is recommended. The pa tient will receive written notification of the results. Approximately 10% of breast cancers are not detected with mammography. A negative mammographic report should not delay biopsy if a clinically suggestive mass is present. Carley Bean M.D. ay/:09/29/2017 12:18:06 Pipe Layer: Lazara MARMOLEJO)(Madisyn), [facility] letter sent: Normal 1/2 BI-RADS Code: ACR BI-RADS Category 1: Negative
== END | disposition home or self-care (01) ==
LOC: C.MAMM 10:48
DX: Z12.31 Encounter for screening mammogram for malignant neoplasm of breast (principal)

== ENCOUNTER 2022-10-21 06:08 | Observation (INO) ==
--- NOTE | 2022-09-23 11:58 | History & Physical Report ---
Date of Service September 23, 2022 date of surgery: 10/21/22 Procedure: Left Total Knee Arthroplasty Possible Stem and Wedges Surgeon: Russell Adams Assessment & Plan (1) Arthritis of knee, left: Plan: Risk and benefits of the procedure discussed in detail, she would like to proceed with a left total knee replacement. She has tried and failed conservative measures as well as has had previous ORIF of a tibial plateau fracture with subsequent removal of the hardware. Will place on aspirin 81 mg twice a day for 1 month postop, would recommend in-home physical therapy upon discharge otherwise has no other questions or concerns The risks and benefits have been discussed including, but not limited to, risk of infection, nerve injury, stiffness, loss of motion, failure to improve, etc. Reasonable outcomes and options of treatment were discussed. An explanation of appropriate alternatives to the procedure that may be advantageous were discussed and their risks and benefits, as well as the risks and benefits of not proceeding with treatment. I offered to answer any additional inquiries concerning the treatment involved. All the patient's questions were answered. The patient is agreeable, understanding of the treatment plan and alternatives, and wishes to proceed with the treatment plan. History of Present Illness Chief Complaint: left knee pain Primary Care Provider: Astrid Hubbard MD Yessica is a pleasant 82-year-old female who presented for preop evaluation prior to left total knee replacement. She has a longstanding history of left knee pain and has failed conservative measures including previous viscosupplementation as well as corticosteroid injections. She has a history of ORIF of a proximal tibial plateau fracture by Dr. Ross in 2018. Her fracture is healed well, she has recently undergone hardware removal from the surgery and is doing well postoperatively. She states her pain in her knee is affecting her activities including walking standing using stairs, rates her current pain as a 7 out of 10. She is tried oral anti-inflammatories and Tylenol without relief at this point time is failed conservative measures like proceed with a left total knee replacement. Allergies Allergy/AdvReac Type Severity Reaction Status Date / Time oxycodone AdvReac Unknown GI UPSET Verified 09/03/22 07:50 Home Medications Medication Instructions Recorded Confirmed Type calcium carbonate 500 mg calcium 500 mg PO BID 05/08/18 07/23/22 History (1,250 mg) tablet (Calcium 500) lutein 20 mg capsule 20 mg PO HS 12/01/18 03/29/23 History multivitamin 1 tab PO HS 09/27/18 09/03/22 History ibuprofen 200 mg capsule 400 mg PO Q6H PRN Pain 03/06/21 09/03/22 History polysaccharide iron complex 150 mg 150 mg PO HS 03/13/21 09/03/22 History iron capsule (Ferrex) ascorbic acid (vitamin C) 500 mg 500 mg PO PM 01/21/22 09/03/22 History capsule ergocalciferol (vitamin D2) 1,250 1,000 unit PO HS 05/13/22 09/03/22 History mcg (50,000 unit) capsule (Vitamin D2) acetaminophen 650 mg 650 mg PO Q12H PRN Pain 07/09/22 09/03/22 History tablet,extended release (Tylenol Arthritis Pain) aspirin-caffeine 500 mg-32.5 mg 1 tab PO UD PRN Pain 07/09/22 09/03/22 History tablet (Janet Back and Body) levothyroxine 75 mcg tablet 75 mcg PO QAM 07/09/22 09/03/22 History rosuvastatin 40 mg tablet (Crestor) 40 mg PO HS 07/09/22 09/03/22 History sumatriptan succinate 50 mg tablet 50 mg PO DAILY PRN Migraine 09/03/22 09/03/22 History (Imitrex) Headache Past Med/Surg History Medical History Arthritis of knee, left Hyperlipidemia Hypothyroidism Migraine headache Osteoporosis Surgical History History of section X 3 History of colonoscopy History of open reduction and internal fixation (ORIF) procedure LEFT WRIST (around 2010) History of open reduction and internal fixation (ORIF) procedure LEFT KNEE 05/10/18 LMA#4 + PNB. History of total knee arthroplasty RIGHT X 3 Family History Father Hearing loss Sister Stroke Brother Stomach cancer Mother Breast cancer Other No family history of adverse response to anesthesia No family history of bleeding disorder No known health problems Denies family history of Ovarian cancer Prostate cancer Myocardial infarction Colorectal cancer Social History Smoking Status: Never smoker Second Hand Exposure: Yes; Hx Alcohol Use: Yes Alcohol type: wine Alcohol Intake Frequency: 4 or More x per/Week Alcohol Intake Frequency Comment: 1 glass per day Hx Substance Use: No Preferred Language: Slovenian Communication Ability: Effective Visual Impairment: Limited Hearing Ability: Normal Manager Crisis Required: No Beliefs That Will Affect Care: None marital status: / Current Living Situation: Alone current occupational status: retired How many Children do You have: 4 Feels Safe at Home: Yes Childhood Exposure to Second-Hand Smoke: No Dental Care, Regularly: Yes Physical Activity Frequency: Daily Seatbelt Use: always Sunscreen Use: Yes Assistive Devices: Brace/Splint/Immobilizer and Contacts Review of Systems Review of Systems: All systems reviewed & are unremarkable except as noted in HPI & below Constitutional: no fever, no chills and no sweats Respiratory: no cough and no dyspnea Cardiovascular: no chest pain, no dyspnea and no orthopnea Gastrointestinal: no abdominal pain, no nausea and no vomiting Musculoskeletal: as per Subjective / HPI Physical Exam Physical Exam: HT: 5ft 6in WT: 90.4kg Constitutional: WD/WN, vitals as above no acute distress Respiratory: normal respiratory effort, lungs clear to auscultation no respiratory distress, no labored breathing and does not use accessory muscles Cardiovascular: RRR, no murmur, no edema Gastrointestinal (Abdomen): normal bowel sounds, soft, nontender, no hepatosplenomegaly Musculoskeletal: Knee: + knee abnormal to inspection (LEFT KNEE), + effusion (+1 effusion), + surgical incision (well healed incisions), + limited ROM of knee (ROM 0/3/110), + knee ROM with crepitation, + joint line tenderness (medial joint line) and + Riaz's sign positive; no deformity, no skin erythema, no ecchymosis, no valgus laxity, no varus laxity, anterior drawer test negative, Chris's sign negative and pivot shift test negative Results & Data Results & Data Diagnostic Findings AP and lateral of the left knee show advanced degenerative changes of the left knee with lafw-so-egtf changes, joint space narrowing osteophyte formation subchondral sclerosis overall valgus deformity. She is status post removal of hardware from her proximal tibial plateau
--- NOTE | 2022-10-13 09:51 | Anesthesiology Consultation ---
Date of Service October 13, 2022 Assessment & Plan (1) Encounter for pre-operative examination: Plan - check CBC with diff STAT am DOS. - Pt now acceptable to proceed given interval from positive COVID test 08/2022. -PCP 07/23/22 MN:"...preoperative evaluation prior to L TKA with Dr Adams of [facility] on 09/03/22...Based on the above RCRI assessment, the patient has a 0.4% risk of cardiac , nonfatal GA or nonfatal cardiac arrest Patient is a low risk patient for a intermediate risk procedure...This patient's ARISCAT score is 16 for a Low risk procedure = 1.6% risk for perioperative pulmonary complications (such as hypoxemia, hypercapnia, atelectasis, pulmonary infection, prolonged mechanical ventilatory needs). These risks do not preclude the patient from a medically necessary surgical procedure...This patient is medically optimized and at an acceptable risk to proceed with the planned surgical procedure without further cardiac workup..." - Outpatient joint assessment: Patient is currently scheduled for inpatient pathway. If re-evaluated pending system levels during current pandemic/surgeon requests outpatient pathway, patient is not acceptable candidate for outpatient joint program from anesthesia standpoint. - COVID screening: Per credit assessment analyst on 10/13/2022: Travel screen negative, no known COVID-19 positive contacts or current COVID-19 related symptoms in past 2 weeks. To surgeon's discretion if preop COVID testing is needed. Chart Review Chart Review: Acceptable Risk for Surgery and Patient NOT seen in Pre Admission Testing History Surgery Operation Date: 10/21/22 07:15 Proposed Procedures p Left Total Knee Arthroplasty Possible Stem and Wedges - Russell Adams DO Height/Weight Height: 5 ft 6.5 in Weight: 87.997 kg Allergies Allergy/AdvReac Type Severity Reaction Status Date / Time oxycodone AdvReac Unknown GI UPSET Verified 10/13/22 08:30 Medications Home Medications Medication Instructions Recorded Confirmed Last Taken calcium carbonate 500 mg calcium 500 mg PO BID 05/08/18 10/13/22 Unknown (1,250 mg) tablet (Calcium 500) lutein 20 mg capsule 20 mg PO HS 05/08/18 10/13/22 08/20/22 multivitamin 1 tab PO HS 09/27/18 10/13/22 09/02/22 19:00 ibuprofen 200 mg capsule 400 mg PO Q6H PRN Pain 03/06/21 10/13/22 Unknown polysaccharide iron complex 150 mg 150 mg PO HS 03/13/21 10/13/22 09/02/22 19:00 iron capsule (Ferrex) ascorbic acid (vitamin C) 500 mg 500 mg PO PM 01/21/22 10/13/22 09/02/22 19:00 capsule ergocalciferol (vitamin D2) 1,250 1,000 unit PO HS 05/13/22 10/13/22 09/02/22 19:00 mcg (50,000 unit) capsule (Vitamin D2) acetaminophen 650 mg 650 mg PO Q12H PRN Pain 07/09/22 10/13/22 09/03/22 05:30 tablet,extended release (Tylenol Arthritis Pain) aspirin-caffeine 500 mg-32.5 mg 1 tab PO UD PRN Pain 07/09/22 10/13/22 08/20/22 tablet (Janet Back and Body) rosuvastatin 40 mg tablet (Crestor) 40 mg PO HS 07/09/22 10/13/22 09/02/22 19:00 sumatriptan succinate 50 mg tablet 50 mg PO DAILY PRN Migraine 09/03/22 10/13/22 08/29/22 (Imitrex) Headache levothyroxine 75 mcg tablet 75 mcg PO QAM #90 tabs 09/25/22 10/13/22 Unknown Past Medical History Medical History Arthritis of knee, left History of COVID-19 09/03/22 > tested positive dos > had no symptoms at all Hyperlipidemia Hypothyroidism Migraine headache Osteoporosis Past Family History Family History Father Hearing loss Sister Stroke Brother Stomach cancer Mother Breast cancer Other No family history of adverse response to anesthesia No family history of bleeding disorder No known health problems Denies family history of Ovarian cancer Prostate cancer Myocardial infarction Colorectal cancer Past Surgical History Surgical History History of section X 3 History of colonoscopy History of open reduction and internal fixation (ORIF) procedure LEFT WRIST (around 2010) History of open reduction and internal fixation (ORIF) procedure LEFT KNEE 05/10/18 LMA#4 + PNB. History of total knee arthroplasty RIGHT X 3 Social History Smoking Status: Never smoker Do You Dip or Chew Tobacco: No Hx Alcohol Use: Yes Alcohol type: wine alcohol intake frequency: 0-2 drinks per day Alcohol Intake Frequency Comment: 1 glass wine per night Hx Substance Use: No substance use type: does not use Lab Results Anesthesia Preop Results Results Anesthesia Widget: Na 138 mmol/L (136-145) 10/07/22 K 4.4 mmol/L (3.5-5.1) 10/07/22 Cl 104 mmol/L (98-107) 10/07/22 CO2 26 mmol/L (21-32) 10/07/22 BUN 18 mg/dl (6-23) 10/07/22 Creat 0.66 mg/dl (0.6-1.2) 10/07/22 Glucose Level 116 mg/dl (70-99(Fasting)) H 10/07/22 PT 10.9 Seconds (9.0-12.0) 10/07/22 PTT 26.2 Seconds (21.0-31.0) 10/07/22 INR 1.0 (0.9-1.1) 10/07/22 HA1c 5.6 % (4.5-5.6) 10/07/22 Urine Color Dark Yellow 10/07/22 Urine Appearance Clear (Clear) 10/07/22 Urine pH 5.0 (4.5-7.5) 10/07/22 Urine Specific Emmalena 1.031 (1.000-1.030) H 10/07/22 Urine Protein 2+ (Negative) H 10/07/22 Urine Glucose (UA) Negative (Negative) 10/07/22 Urine Ketones Trace (Negative) H 10/07/22 Urine Blood 3+ (Negative) H 10/07/22 Urine Nitrite Negative (Negative) 10/07/22 Urine Bilirubin Negative (Negative) 10/07/22 Urine Urobilinogen Negative (Negative) 10/07/22 Urine Leukocyte Esterase Negative (Negative) 10/07/22 Urine WBC (Auto) 1-5 /hpf (0-5) 10/07/22 Urine RBC (Auto) 10-30 /hpf (0-4) H 10/07/22 Urine Hyaline Casts (Auto) 5-10 /lpf (0-5) H 10/07/22 Urine Epithelial Cells (Auto) 10-20 /lpf (0-5) H 10/07/22 Urine Bacteria (Auto) Negative (Negative) 10/07/22 COVID-19 PCR POSITIVE (Negative) A* 09/03/22 SARS-CoV-2, RNA, NAAT POSITIVE (NEGATIVE) A* 09/03/22 Blood Type A Positive 10/07/22 Antibody Screen NEGATIVE 10/07/22 Testing Laboratory Results Surgeon's office made aware of abnormal UA. Electrocardiogram Date: 12/30/21 NSR, rate 66 bpm Chest X-Ray Date: 07/10/22 No pneumothorax. No pleural effusions. Linear densities within the lung bases favor subsegmental atelectasis or scarring. Otherwise, the lungs are clear. The heart is normal in size. Calcifications again noted within the aortic knob. No acute process
[~2022-10-21 06:08] MED LIST changes: +ACETAMINOPHEN 500 MG TAB PO SCH; -ASCO500T16 PO; -CALC600T37 PO; -CHOL100027 PO; +CeleBREX 200 MG CAP PO SCH; +FAMOTIDINE 20 MG TAB PO SCH; +GABAPENTIN 300 MG CAP PO SCH; -LEVO50TA6 PO; +LR 500ML BOLUS, THEN 15ML/HR IV SCH; -LUTE20TA PO; +METOCLOPRAMIDE HCL 10 MG TABLET PO SCH; -MULT-506 PO; -POLY150C4 PO; +ROPIVACAINE 0.5% HCL/PF 150 MG, BUPIVACAINE 0.75% MPF 20 ML, EPINEPHrine 30MG/30ML (OR ... INSTIL SCH; -SIMV80TA2 PO; -SUMA50TA15 PO; +TRANEXAMIC ACID 1,000 MG **IV Intra-op IV SCH; +TRANEXAMIC ACID 1,000 MG **IV Pre-op IV SCH; +ceFAZolin 2000MG 2,000 MG/15 ML SYR IV SCH; +dexAMETHasone 4 MG TAB PO SCH
[2022-10-21] MEDS ORDERED: EPINEPHrine INJ 1 MG/ML AMP ONE (06:35)
[2022-10-21] MEDS ORDERED: DEXAMETHASONE SOD INJ 4 MG/ML VIAL ONE (06:35)
[2022-10-21] MEDS ORDERED: BUPIVACAINE 0.25% PF 30 ML VIAL ONE (06:35)
[2022-10-21] MEDS ORDERED: BUPIVACAINE 0.5 % 5 MG/1 ML PF 10ML VIAL ONE (06:35)
[2022-10-21 07:09] LABS: Basophils # (auto) 0.07 K/uL (0-0.2); Basophils % (auto) 1.2 %; Eosinophils # (auto) 0.21 K/uL (0-0.50); Eosinophils % (auto) 3.6 %; Hematocrit (blood only) 41.1 % (37.0-47.0); Hemoglobin 13.4 g/dl (12.0-16.0); Immature Granulocytes # (auto) 0.01 K/uL (0.01-0.20); Immature Granulocytes % (auto) 0.2 %; Lymphocytes # (auto) 1.13 K/uL (1.2-3.4); Lymphocytes % (auto) 19.3 %; Mean Corpuscular Hgb Conc 32.6 g/dL (32.0-36.0); Mean Corpuscular Volume 98.1 fL (80.0-100.0); Mean Platelet Volume 9.8 fL (9.4-12.4); Monocytes # (auto) 0.59 K/uL (0.11-0.59); Monocytes % (auto) 10.1 %; Neutrophils # (auto) 3.83 K/uL (1.40-6.50); Neutrophils % (auto) 65.6 %; Platelet Count 229 K/uL (130-400); RDW Coefficient of Variation 12.7 % (11.5-14.5); RDW Standard Deviation 45.7 fL (36.4-46.3); Red Blood Count 4.19 M/uL (4.20-5.40); White Blood Count 5.84 K/ul (4.8-10.8)
[2022-10-21] MEDS ORDERED: MIDAZOLAM HCL 1 MG/ML 2ML VIAL ONE (07:58)
[2022-10-21] MEDS ORDERED: LIDOCAINE 2% 2 ML VIAL/AMP(20MG/ML) INFIL ONE (07:59)
[2022-10-21] MEDS ORDERED: fentaNYL citrate PF 100 MCG/2 ML VIAL ONE (07:59)
[2022-10-21] MEDS ORDERED: ONDANSETRON INJ 2 MG/ML 2 ML VIAL ONE (07:59)
[2022-10-21] MEDS ORDERED: PROPOFOL IV EMULSION 10 MG/ML 20 ML VIAL IV ONE ×2 (07:59→10:45)
--- NOTE | 2022-10-21 08:40 | History & Physical Bridge Note ---
Date of Service October 21, 2022 History & Physical Bridge Note I have examined the patient, reviewed the History & Physical and in the interval since the performance of the History & Physical I have noted the following changes of clinical significance: no changes noted
[2022-10-21] MEDS ORDERED: fentaNYL citrate PF 100 MCG/2 ML VIAL IV PRN (08:49)
[2022-10-21] MEDS ORDERED: ePHEDrine sulfate 50 MG/ML AMP IV PRN (08:49)
[2022-10-21] MEDS ORDERED: ONDANSETRON INJ 2 MG/ML 2 ML VIAL IV PRN ×2 (08:49→13:21)
[2022-10-21] MEDS ORDERED: ATROPINE SULFATE 0.1 MG/ML 10ML SYR IV PRN (08:49)
[2022-10-21] MEDS ORDERED: ORTHO JOINT ANESTHETIC ONE (09:18)
[2022-10-21] MEDS ORDERED: ePHEDrine sulfate 50 MG/ML AMP ONE (10:02)
--- NOTE | 2022-10-21 11:09 | Operative Report ---
Post Operative Report Pre & Post Diagnosis Operation Date: 10/21/22 08:55 Pre-Op Diagnosis: Primary Osteoarthritis of Left Knee Post-Op Diagnosis: Primary Osteoarthritis of Left Knee I identified the patient and participated in the time-out.: Yes Procedure Operation Date: 10/21/22 08:55 Actual Procedures p Left Total Knee Arthroplasty (Left utilizing Ramires & Neph journey 2 patient matched total knee arthroplasty femur 6 tibia 6 poly 12 constrained patella 32 oval) - Russell Adams DO Surgeon Russell Adams DO Machine Operator Hay Stacker Adarsh JUAN Estimated Blood Loss 5 Findings Consistent with Post-Op Diagnosis Patient presents with severe end-stage tricompartmental DJD 12 degree valgus alignment with eburnated [id number] mobilize bone subchondral cystic changes marginal osteophytes moderate to large effusion Specimens Bone and cartilage Drains Medium bore Hemovac Anesthesia Type MAC Spinal Regional Complications none Disposition Accompanied Patient To Recovery: No Disposition: Recovery Room Indications Patient presents with severe end-stage DJD valgus alignment subchondral sclerosis marginal osteophytes patient failed attempted corticosteroid injection viscosupplementation relative rest activity modification patient has a history of previous tibial plateau fracture with removal of hardware patient presents for total knee arthroplasty Description of Procedure After proper prepping and draping of the left lower extremity anterior midline incision was made over the region of the extensor extensor mechanism after meticulous hemostasis was obtained and maintained in subcutaneous tissues a medial parapatellar incision was made The patella was subluxed lateralward the medial lateral gutter were cleaned from any hypertrophic synovitis and scar tissue of the distal femoral block was placed and the distal femoral osteotomy cut was made subsequently the chamfers anterior and posterior osteotomy cuts were made utilizing the 4-in-1 block the tibia was subsequently subluxed anteriorward medial and ateral meniscal remnants were excised in their entirety remnants of the anterior and posterior cruciate ligaments were excised in their entirety excellent exposure of the proximal tibia was obtained the tibial osteotomy guide was placed on the proximal tibial osteotomy cut was made once again the knee was irrigated with copious amounts of sterile saline solution the patella was subsequently everted lateralward thickened scar tissue around the patella was removed the patella was subsequently cut utilizing a freehand technique and was drilled prepared for final preparation and placement of patella socially flexion-extension gaps were checked and the equal and symmetric trials were placed to the appropriate femoral and tibial trials with poly-spacer being placed for equal flexion and extension gaps and full range of motion including extension to 0 and flexion to 140 the trial components after having been taken to recovery range of motion was subsequently removed meticulous hemostasis was obtained and maintained subsequently a knee block injection of joint cocktail including ropivacaine 0.5% 150 mg. Bupivacaine 0.5% epinephrine 1-200,030 mL's toradol 30 mg dexamethasone 4 mg ketamine 10 mg clonidine 100 micrograms normal saline solution 30 mg was infiltrated into the soft tissues of the posterior knee medial lateral gutters and periosteal synovium special attention was paid to protect neurovascular structures at all times subsequently trial components having been removed the knee was irrigated with sterile saline solution. debris was removed the proximal tibia was subsequently prepared and was made ready for the placement of the tibial component tibial component was also cemented and tamped into position the femoral component was subsequently placed and cemented in the position the patellar component was subsequently cemented in position because hemostasis once again obtained and maintained wound having been thoroughly irrigated with debridement and debridement lavage was performed as well as a medial parapatellar incision closed with #1 Vicryl in interrupted fashion subcutaneous was closed with #2 Vicryl skin was closed with skin clips. PA-C was necessary for prepping and drapping as well as wound closure of deep fascia Sub cutaneous tissue and skin and was necessary for the case. A sterile compressive dressing was placed patient was taken to recovery in stable condition of report dictated by Bryan I attest to the content of the Intraoperative Record and any orders documented therein. Any exceptions are noted below.Due to the complex nature of the procedure, the entire surgery was performed with the operational assistance of Adarsh JUAN. The emergency medicine physician assistant, under direct supervision, was involved in the actual performance of all aspects of the surgical procedure including hemostasis, tissue retraction and incision, instrument management, patient positioning, and wound closure. I attest to the content of the Intraoperative Record and any orders documented therein. Any exceptions are noted below.
--- NOTE | 2022-10-21 12:29 | Anesthesiology Progress Note ---
Date of Service October 21, 2022 Anesthesia Post Procedure Vital Signs Vital Signs: Temp Pulse Pulse Resp BP Pulse Ox O2 Del Method 10/21/22 12:25 71 15 143/84 H 98 Nasal Cannula 10/21/22 12:15 67 14 147/90 H 98 Nasal Cannula 10/21/22 11:55 75 15 142/89 H 92 Room Air 10/21/22 12:05 36.4 C L 68 12 152/83 H 98 Nasal Cannula 10/21/22 11:45 80 17 136/88 95 Room Air 10/21/22 11:37 36.4 C L 78 16 128/97 96 Room Air 10/21/22 06:42 36.8 C 66 20 143/84 H 98 Room Air O2 Flow Rate 10/21/22 12:25 2 10/21/22 12:15 2 10/21/22 11:55 10/21/22 12:05 2 10/21/22 11:45 10/21/22 11:37 10/21/22 06:42 Pain Intensity Left Knee: Pain Intensity: 5 Transfer of Care Handoff Completed per policy Notes Mental Status: alert / awake / arousable Patient Amnestic to Procedure: Yes Nausea / Vomiting: adequately controlled Pain: adequately controlled Airway Patency, RR, SpO2: stable & adequate BP & HR: stable & adequate Hydration State: stable & adequate Neuraxial Anesthesia: was administered and sensory block is resolving Anesthetic Complications: no major complications apparent and Pt Satisfied with anesthetic care
--- NOTE | 2022-10-21 12:54 | XRay Report ---
TWO VIEWS LEFT KNEE CLINICAL HISTORY: Postoperative examination. FINDINGS: AP and crosstable lateral portable views of the left knee are obtained. A left knee arthrop lasty is in near anatomic alignment. There has been undersurface remodeling of the patella. No acute fracture is seen. There are expected postoperative changes around the knee including skin clips, a jorge rgical drain, soft tissue edema, and subcutaneous gas. There is chronic deformity of the proximal fib rafa. IMPRESSION: Expected postoperative changes status post left knee arthroplasty. No acute fracture is s een. ACT 112: Negative or not required by law. Electronically signed by: Jean Varela M.D. 10/21/2022 12:52 PM
[2022-10-21] MEDS ORDERED: HYDROmorphone INJ 0.5 MG/0.5 ML SYR IV PRN (13:21)
[2022-10-21] MEDS ORDERED: MAGNESIUM HYDROXIDE SUSP 30 ML UDC PO PRN (13:21)
[2022-10-21] MEDS ORDERED: diphenhydrAMINE 50 MG/ML VIAL IV PRN (13:21)
[2022-10-21] MEDS ORDERED: HYDROCODONE/ACETAMOPHEN 5/325MG TAB PO PRN (13:21)
[2022-10-21] MEDS ORDERED: bisacodyL 10 MG SUPP PR PRN (13:21)
[2022-10-21] MEDS ORDERED: SUMAtriptan succinate 50 MG TAB PO PRN (13:21)
[2022-10-21] MEDS ORDERED: NALOXONE HCL 0.4 MG/1 ML VIAL/CARP IV PRN (13:21)
--- NOTE | 2022-10-21 13:52 | Hospitalist Consultation ---
Date of Consultation October 21, 2022 Assessment & Plan (1) S/P total knee arthroplasty: Yessica is a 82-year-old female with a past medical history of left knee osteoarthritis s/p total left knee arthroplasty, 5 cc of blood loss with no complications. We are consulted for postop management of medical comorbidities. Reports surgery was uncomplicated. Left knee total arthroplasty 2/2 OA S/p TKA 10/21/2022 5 cc of blood loss, no surgical complications DVT prophylaxis per primary team, currently on aspirin 81 mg p.o. twice daily Preop hemoglobin 13.4, hemodynamically stable postoperatively 2 L postop oxygen requirement, no history of heart failure. Suspect atelectatic, continue incentive spirometer. Titrate oxygen to SPO2 goal 94%, if hypoxia persists obtain CXR 10/22 No GERD, abdomen is nontender no history of hematochezia. PPI deferred, received preoperative famotidine. If epigastric discomfort develops, can start 4-week Protonix 40 mg daily course concurrent with DVT prophylaxis Hyperlipidemia Without history of TN/CAD/CVD LDL previously well controlled less than 100, atorvastatin was recently dose decreased in the last 6 months due to myalgias. 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 Annual monitoring, no acute change in management while inpatient History of asymptomatic bacteriuria Patient was without preop symptoms of UTI, UA was consistent with asymptomatic bacteriuria not requiring treatment. Follow-up UCx was with normal rocio. specimen was not a clean-catch, and furthermore was likely to be contaminated. In summary Yessica is a pleasant 82-year-old female who presents for left knee osteoarthritis and is now s/p total left knee arthroplasty which was uncomplicated with minimal blood loss and who is doing well postoperatively. Her chronic medical issues including hyperlipidemia, hypothyroidism, and migraines are all well controlled. She does not have any acute exacerbations of her baseline medical problems, home medications may be continued as noted below. Postoperatively she did have a 2 L nasal cannula requirement now weaned to 1 L remaining with good O2 sats. Continue to wean with goal SPO2 of 94%. On auscultation she does not have any rales/crackles and has no history of pulmonary disease or heart failure. Suspect atelectasis, incentive spirometer use recommended every4 hours until normalized. DVT prophylaxis and ambulation recommendations per primary team, pain is currently well controlled. She is hemodynamically stable postoperatively. Medicine will chart review in the morning to ensure that hypoxia has reviewed, otherwise will sign off at this time. If any complications or acute concerns develop, please reconsult. (2) Migraine headache: (3) Hypothyroidism: (4) Hyperlipidemia: (5) Asymptomatic bacteriuria: (6) Acute respiratory failure with hypoxia: History of Present Illness Attending Physician: Russell Adams, History of Present Illness Yessica is a 82-year-old female with a past medical history of left knee osteoarthritis s/p total left knee arthroplasty, 5 cc of blood loss with no complications. We are consulted for postop management of medical comorbidities. Reports surgery was uncomplicated. Yessica is seen at the bedside postoperatively. She reports that she feels very well, has no acute concerns, and notes that she will be visiting her sister in [facility] later this year and hopes that she will be walking well with no pain for that visit. She reports that at baseline she has no chest pain with exertion, no shortness of breath. She has no postop chest pain, chest pressure, extremity pain, lightheadedness, dizziness. She does not normally use oxygen and has no lung problems at baseline. Does not wheeze, and is having no wheezing postoperatively. She notes that she was able to wiggle her toes and had good sensation immediately following surgery and denies any numbness/tingling in her right or left lower extremities. She reports that she has a sensitivity to oxycodone with some nausea, otherwise no medication allergies. She notes she was evaluated for preoperative UA, notes she has had no dysuria/frequency/nocturia/hesitancy and was told this was asymptomatic bacteriuria consistent with this. The final UCx of this was normal rocio, patient has shown no past or current signs of UTI. She notes that she also intends to have her left shoulder repair due to osteoarthritis in the future, but other than this has no questions or concerns at bedside. Medical History: Reviewed Medications: Reviewed Surgical History: Reviewed Family history: Reviewed Allergies: Reviewed Social History: Reviewed Code Status: Full Allergies Allergy/AdvReac Type Severity Reaction Status Date / Time oxycodone AdvReac Unknown GI UPSET Verified 10/21/22 07:03 Home Medications Medication Instructions Recorded Confirmed Type calcium carbonate 500 mg calcium 500 mg PO BID 05/08/18 10/21/22 History (1,250 mg) tablet (Calcium 500) lutein 20 mg capsule 20 mg PO HS 05/08/18 10/21/22 History multivitamin 1 tab PO HS 09/27/18 10/21/22 History ibuprofen 200 mg capsule 400 mg PO Q6H PRN Pain 03/06/21 10/21/22 History polysaccharide iron complex 150 mg 150 mg PO HS 03/13/21 10/21/22 History iron capsule (Ferrex) ascorbic acid (vitamin C) 500 mg 500 mg PO PM 01/21/22 10/21/22 History capsule ergocalciferol (vitamin D2) 1,250 1,000 unit PO HS 05/13/22 10/21/22 History mcg (50,000 unit) capsule (Vitamin D2) acetaminophen 650 mg 650 mg PO Q12H PRN Pain 07/09/22 10/21/22 History tablet,extended release (Tylenol Arthritis Pain) aspirin-caffeine 500 mg-32.5 mg 1 tab PO UD PRN Pain 07/09/22 10/21/22 History tablet (Janet Back and Body) rosuvastatin 40 mg tablet (Crestor) 40 mg PO HS 07/09/22 10/21/22 History sumatriptan succinate 50 mg tablet 50 mg PO DAILY PRN Migraine 09/03/22 10/21/22 History (Imitrex) Headache levothyroxine 75 mcg tablet 75 mcg PO QAM #90 tabs 09/25/22 10/21/22 Rx Patient History Medical History Arthritis of knee, left History of COVID-19 09/03/22 > tested positive dos > had no symptoms at all Hyperlipidemia Hypothyroidism Migraine headache Osteoporosis Surgical History History of section X 3 History of colonoscopy History of open reduction and internal fixation (ORIF) procedure LEFT WRIST (around 2010) History of open reduction and internal fixation (ORIF) procedure LEFT KNEE 05/10/18 LMA#4 + PNB. History of total knee arthroplasty RIGHT X 3 Family History Father Hearing loss Sister Stroke Brother Stomach cancer Mother Breast cancer Other No family history of adverse response to anesthesia No family history of bleeding disorder No known health problems Denies family history of Ovarian cancer Prostate cancer Myocardial infarction Colorectal cancer Social History Smoking Status: Never smoker Second Hand Exposure: No; Do You Dip or Chew Tobacco: No; Tobacco Cessation Education Requested by Patient: No Hx Alcohol Use: Yes Alcohol type: wine Alcohol Intake Frequency: 4 or More x per/Week Alcohol Intake Frequency Comment: 1 glass per day Hx Substance Use: No Preferred Language: Qatari Communication Ability: Effective Visual Impairment: Limited Hearing Ability: Normal Automatic Head Sawyer Required: No Beliefs That Will Affect Care: None marital status: / Current Living Situation: Alone current occupational status: retired How many Children do You have: 4 Other Information That Helps Us Care for You: No Feels Safe at Home: Yes Safety Concerns: Feels Safe At This Time Childhood Exposure to Second-Hand Smoke: No Dental Care, Regularly: Yes Physical Activity Frequency: Daily Seatbelt Use: always Sunscreen Use: Yes Assistive Devices: Contacts Review of Systems Review of Systems: All systems reviewed & are unremarkable except as noted in HPI & below Physical Exam Physical Exam: General: A&Ox3. NAD. Cooperative. HEENT: Atraumatic, normocephalic. Vision/hearing intact Pulm: CTAB A&P. -wheezes, -rales, -rhonchi. No crackles. Symmetrical chest rise. No increased work of breathing. No respiratory distress. Cardiac: RRR, -mrg. Radial pulses intact and symmetrical. Abdominal: Nontender, nondistended, soft. BS present. Ext: LLQ in postop wrap and dressing. Ankle dorsi/plantarflexion 5/5 bilat, wiggles toes bilat. PT pulse intact bilat. Sensation to soft touch in both feet without assymetry. Surgical drain in place at L knee draining serosanginous fluid. Results & Data Results & Data Vital Signs (Past 12 Hours) Vital Signs Temp Pulse Pulse Resp BP Pulse Ox O2 Del Method 10/21/22 12:55 68 16 132/86 96 Nasal Cannula 10/21/22 12:40 67 17 139/86 96 Nasal Cannula 10/21/22 12:25 71 15 143/84 H 98 Nasal Cannula 10/21/22 12:15 67 14 147/90 H 98 Nasal Cannula 10/21/22 11:55 75 15 142/89 H 92 Room Air 10/21/22 12:05 36.4 C L 68 12 152/83 H 98 Nasal Cannula 10/21/22 11:45 80 17 136/88 95 Room Air 10/21/22 11:37 36.4 C L 78 16 128/97 96 Room Air 10/21/22 06:42 36.8 C 66 20 143/84 H 98 Room Air O2 Flow Rate 10/21/22 12:55 2 10/21/22 12:40 2 10/21/22 12:25 2 10/21/22 12:15 2 10/21/22 11:55 10/21/22 12:05 2 10/21/22 11:45 10/21/22 11:37 10/21/22 06:42 PG Care Time/CCT Total # of Minutes Spent Total Time Spent with Patient: Total time spent is greater than 50% in coordination of care (as documented) at patient's floor/unit and/or counseling patient: Coding Level of Care Code 81057 IN/OBS CONSULT LVL 3,45M Diagnoses S/P total knee arthroplasty Z96.659 Migraine headache G43.909 Hypothyroidism E03.9 Hyperlipidemia E78.5 Asymptomatic bacteriuria R82.71 Acute respiratory failure with hypoxia J96.01
[2022-10-21] MEDS: SODIUM CHLORIDE 0.9% 1000ML 1,000 ML IV SCH (14:50)
[2022-10-21] MEDS: ceFAZolin 2000MG 2,000 MG/15 ML SYR IV SCH (18:48)
[2022-10-21] MEDS: DOCUSATE SODIUM 100 MG CAP PO SCH (20:42)
[2022-10-21] MEDS: ASPIRIN 81 MG ECTAB PO SCH (20:42)
[2022-10-21] MEDS: CALCIUM CARBONATE 1250MG TAB PO SCH (20:42)
[2022-10-21] MEDS ORDERED: CHOLECALCIFEROL 1,000 UNITS 25 MCG TAB PO SCH (21:00)
[2022-10-21] MEDS ORDERED: CHOLECALCIFEROL 400 UNITS 10 MCG TAB PO SCH (21:00)
[2022-10-21] MEDS ORDERED: ASCORBIC ACID 500 MG TAB PO SCH (21:00)
[2022-10-21] MEDS ORDERED: ROSUVASTATIN CALCIUM 20 MG TAB PO SCH (21:00)
[2022-10-21] MEDS ORDERED: SENNA 8.6 MG TAB PO SCH (21:00)
[2022-10-22] MEDS: ceFAZolin 2000MG 2,000 MG/15 ML SYR IV SCH (03:10)
[2022-10-22] MEDS: SODIUM CHLORIDE 0.9% 1000ML 1,000 ML IV SCH (06:14)
[2022-10-22] MEDS ORDERED: LEVOTHYROXINE SODIUM 75 MCG TABLET PO SCH (06:30)
[2022-10-22] MEDS: DOCUSATE SODIUM 100 MG CAP PO SCH (08:01)
[2022-10-22] MEDS: ASPIRIN 81 MG ECTAB PO SCH (08:01)
[2022-10-22] MEDS: CALCIUM CARBONATE 1250MG TAB PO SCH (08:01)
[2022-10-22] MEDS ORDERED: MULTIVITAMIN TAB PO SCH (09:00)
--- NOTE | 2022-10-22 09:16 | Orthopedic Progress Note ---
Date of Service October 22, 2022 Assessment & Plan (1) Arthritis of knee, left: Plan: Postop day 1 status post left total knee arthroplasty. PT/OT protocols. Weightbearing as tolerated. DVT prophylaxis-aspirin p.o. twice daily, SCDs, CHRIS valentine. Pain management as written. A.m. labs pending. AL planning-patient is planning for home health services upon discharge. Admission and Anticipated Discharge Date Admission Date: October 21, 2022 Subjective Postop day 1 Patient sitting in her chair at the bedside. No complaints this morning. Pain is controlled. She feels well overall. She is hoping to go home today. Physical therapy is about to start working with her. Physical Exam Physical Exam: Dressings are clean, dry, and intact. Calves are soft nontender. Neurovascular intact. Toes are mobile. She has good dorsiflexion plantarflexion of the left foot. Hemovac drainage was 250 cc from the previous shift. Results & Data Vital Signs (Past 12 Hours) Vital Signs Temp Pulse Pulse Resp BP BP Pulse Ox 10/22/22 07:42 36.6 C 60 14 124/80 98 10/22/22 06:14 36.5 C 76 18 136/82 96 10/22/22 03:16 36.5 C 67 18 131/79 95 10/22/22 00:22 36.6 C 62 16 118/78 96 O2 Del Method 10/22/22 07:42 Room Air 10/22/22 06:14 Room Air 10/22/22 03:16 Room Air 10/22/22 00:22 Room Air
--- NOTE | 2022-10-22 10:51 | Communication Note ---
Date of Service: October 22, 2022 Discussed with nursing/review ortho notes. Patient to 98% on room air since incentive spirometer use, doing well. Worked with therapy and planning discharge with home health. No official need for eval as prior consultation noted chart check/review oxygen saturations. Hospitalist service will sign off. Please call with any questions/concerns.
[2022-10-22 11:21] LABS: Hematocrit (blood only) 39.9 % (37.0-47.0); Hemoglobin 13.3 g/dl (12.0-16.0); Mean Corpuscular Hemoglobin 32.4 pg (25.0-34.0); Mean Corpuscular Hgb Conc 33.3 g/dL (32.0-36.0); Mean Corpuscular Volume 97.3 fL (80.0-100.0); Mean Platelet Volume 10.6 fL (9.4-12.4); Platelet Count 230 K/uL (130-400); RDW Coefficient of Variation 12.7 % (11.5-14.5); RDW Standard Deviation 45.4 fL (36.4-46.3); White Blood Count 15.69 K/ul (4.8-10.8)
[2022-10-22 11:23] LABS: Calcium 9.4 mg/dl (8.6-10.3); Creatinine Clr Calc Pharmacy 61.3 ml/min; Est GFR (African American) 77.8 ml/min; Est GFR (Non-African American) 67.1 ml/min; Potassium 4.2 mmol/L (3.5-5.1)
--- NOTE | 2022-10-23 12:39 | Discharge Summary ---
Date of Service October 23, 2022 Admission HPI Per Admitting Provider Viviana is a pleasant 82-year-old female who presented for preop evaluation prior to left total knee replacement. She has a longstanding history of left knee pain and has failed conservative measures including previous v iscosupplementation as well as corticosteroid injections. She has a history of ORIF of a proximal tibial plateau fracture by Dr. Ross in 2018. Her fracture is healed well, she has recently undergone hardware removal from the surgery and is doing well postoperatively. She states her pain in her knee is affecting her activities including walking standing using stairs, rates her current pain as a 7 out of 10. She is tried oral anti-inflammatories and Tylenol without relief at this point time is failed conservative measures like proceed with a left total knee replacement. Admission Exam Per Admitting Provider Physical Exam: HT: 5ft 6in WT: 90.4kg Constitutional: WD/WN, vitals as above no acute distress Respiratory: normal respiratory effort, lungs clear to auscultation no respiratory distress, no labored breathing and does not use accessory muscles Cardiovascular: RRR, no murmur, no edema Gastrointestinal (Abdomen): normal bowel sounds, soft, nontender, no hepatosplenomegaly Musculoskeletal: Knee: + knee abnormal to inspection (LEFT KNEE), + effusion (+1 effusion), + surgical incision (well healed incisions), + limited ROM of knee (ROM 0/3/110), + knee ROM with crepitation, + joint line tenderness (medial joint line) and + Riaz's sign positive; no deformity, no skin erythema, no ecchymosis, no valgus laxity, no varus laxity, anterior drawer test negative, Chris's sign negative and pivot shift test negative Principal Diagnosis Left knee osteoarthritis Discharge Data Allergies Allergy/AdvReac Type Severity Reaction Status Date / Time oxycodone AdvReac Unknown GI UPSET Verified 10/21/22 07:03 Consultations 10/21/22 05:00 Consult Hospitalist Routine Procedures Performed Operation Date: 10/21/22 08:55 Actual Procedures p Left Total Knee Arthroplasty (Left) - Russell Adams DO Ordered Studies 10/21/22 05:00 US - OR guided needle placemen Stat Hospital Course (1) Arthritis of knee, left: Patient:VIVIANA FOURNIER Admit Date:10/21/22 MR#:[id number] Att Phy:Russell Adams D.O. Acct ID:[id number] Nathalia Phy:Astrid Hubbard MD Date:1940 Fam Phy: Age:82 Location:3E Sex:F Room/Bed:[facility] cc: ~ *NOTICE TO RECEIVING REPUBLICAN/AGENCY This information is strictly Confidential and protected under [place] law. [place] law prohibits you from making any further disclosure of this information unless further disclosure is expressly permitted by the written consent of the person to whom it pertains or is authorized by law. A general authorization for the release of medical or other information is not sufficient for this purpose. Hospital accepts no responsibility if the information is made available to any other person, INCLUDING THE PATIENT. Date of Service October 22, 2022 Assessment & Plan (1) Arthritis of knee, left: Plan: Postop day 1 status post left total knee arthroplasty. PT/OT protocols. Weightbearing as tolerated. DVT prophylaxis-aspirin p.o. twice daily, SCDs, CHRIS valentine. Pain management as written. A.m. labs pending. DC planning-patient is planning for home health services upon discharge. Admission and Anticipated Discharge Date Admission Date: October 21, 2022 Subjective Postop day 1 Patient sitting in her chair at the bedside. No complaints this morning. Pain is controlled. She feels well overall. She is hoping to go home today. Physical therapy is about to start working with her. Physical Exam Physical Exam: Dressings are clean, dry, and intact. Calves are soft nontender. Neurovascular intact. Toes are mobile. She has good dorsiflexion plantarflexion of the left foot. Hemovac drainage was 250 cc from the previous shift. Results & Data Vital Signs (Past 12 Hours) Vital Signs Temp Pulse Pulse Resp BP BP Pulse Ox 10/22/22 07:42 36.6 C 60 14 124/80 98 10/22/22 06:14 36.5 C 76 18 136/82 96 10/22/22 03:16 36.5 C 67 18 131/79 95 10/22/22 00:22 36.6 C 62 16 118/78 96 O2 Del Method 10/22/22 07:42 Room Air 10/22/22 06:14 Room Air 10/22/22 03:16 Room Air 10/22/22 00:22 Room Air Signed By: <Electronically signed by Carlos De Leon MD> 10/22/22 0954 <Electronically signed by Adarsh Navarro PA-C> 10/22/22919 Created:10/22/22 0915 Total Time Total Time Spent Total Time Spent (In Minutes): 5 Discharge Plan Discharge Items Patient Disposition: Home - Home Health Services Reason For Visit: Primary Osteoarthritis of Left Knee Discharge Diagnosis: Primary osteoarthritis of the left knee Activity: Per Instructions section Weightbearing: Left weightbearing Weightbearing Comment: As tolerated with walker. Non-emergency contact: Surgeon Call non-emergency contact if: you have any medication questions, your pain is not controlled, your temperature is above 101.5, your wound has increased redness and your wound has increased drainage Follow-up/Referrals: Astrid Hubbard MD [Primary Care Provider] - Russell Adams DO [Surgeon] - (Follow-up with Dr. Adams or his PA in 2 weeks from the day of your surgery for your first postoperative visit.) Diet: Regular Addtl Attending Provider Instructions: ACTIVITY RECOMMENDATIONS: SELF CARE INSTRUCTIONS AFTER TOTAL KNEE REPLACEMENT A. You may need to continue a physical therapy program after discharge from the hospital. There are several options available to you. Your doctor will assist you in selecting the best one for you. 1. An out-patient facility 2 to 3 times a week for therapy or home therapy. 2. Continue working on all exercises taught to you in the hospital. Your goals should be to increase bending of your knee to 90 degrees and beyond and to fully straighten your knee. B. You may progress at your own pace from walking with a walker or crutches to a cane; then to no assistive devices. C. Make walking a part of your daily routine. Be up as much as comfortable with rest periods throughout the day. Rest with leg elevation is very important. Use the ice wrap frequently for the first 3-4 weeks. D. There are no restrictions on activities. You may ride in a car, shop, participate in trim installer and all social activities. E. Wear the long elastic stockings (CHRIS hose) 20 hours a day for 2 weeks after surgery. They can be removed several times a day for laundering and for a bath. F. You may shower, no tub baths until cleared by your doctor. SPECIAL CARE INSTRUCTIONS: VERY IMPORTANT TO READ AND REVIEW A. There are a few signs you need to watch for after you are home. Call [facility] if you notice any of the followin. Increased severe knee pain. Some pain is expected especially when you exercise. 2. Increased swelling in your leg or knee; pain or swelling of the calf muscle in either lower leg. 3. Any fluid drainage from the incision. 4. Shortness of breath or chest pain. B. Please call [facility] at if you have any concerns or questions about your operation or recovery. The doctor or his nurse will return your call promptly. C. You must take antibiotics before dental work, bladder, bowel or other surgery. Your doctor will provide you with a permanent care to carry describing this precaution. IMPORTANT: * REMEMBER TO TAKE ASPIRIN, 81 MG, TWICE DAILY FOR 4 WEEKS UNLESS OTHERWISE DIRECTED. THIS IS YOUR BLOOD THINNER. * CALL IF INCREASED PAIN, REDNESS, DRAINAGE OR FEVER GREATER THAT 101. * WEAR CHRIS HOSE 20 HOURS PER DAY FOR 2 WEEKS. * RAJEEV Dressing - This is a large suction dressing covering your incision. This will help pull any excess drainage from the wound and allow your incision to heal properly. You may shower with this if you can keep the unit outside of the shower. If any bleeding or leakage is noted please call your doctor's office. This will remain on your incision for 7 days and then should be removed. This can be done yourself or by the home nursing staff if applicable. The entire unit is disposable once removed. Once removed, keep incision clean and dry. If redness or drainage is noted, please call your surgeon. . FOLLOW UP VISIT: If appointment is not already scheduled: Please call [facility] to make a follow-up appointment for 2 weeks after your surgery at . Stand-Alone Forms: [facility], [facility] [facility] [place] Medications and DC Order Prescriptions: New aspirin 81 mg Tablet,Delayed Release (Dr/Ec) 81 mg PO BID 30 Days Qty: 60 0RF polyethylene glycol 3350 [Miralax] 17 gram powder in packet 17 g PO DAILY PRN (Reason: constipation) Qty: 5 0RF hydrocodone-acetaminophen 5-325 mg tablet 1 - 2 tab PO Q6H PRN (Reason: pain) Qty: 24 0RF Continued multivitamin tablet 1 tab PO HS levothyroxine 75 mcg tablet 75 mcg PO QAM Qty: 90 3RF polysaccharide iron complex [Ferrex 150] 150 mg iron capsule 150 mg PO HS ascorbic acid (vitamin C) 500 mg capsule 500 mg PO PM calcium carbonate [Calcium 500] 500 mg calcium (1,250 mg) Tablet 500 mg PO BID lutein 20 mg Capsule 20 mg PO HS ergocalciferol (vitamin D2) [Vitamin D2] 1,250 mcg (50,000 unit) capsule 1,000 unit PO HS rosuvastatin [Crestor] 40 mg tablet 40 mg PO HS sumatriptan succinate [Imitrex] 50 mg tablet 50 mg PO DAILY PRN (Reason: Migraine Headache) Discontinued ibuprofen 200 mg Capsule 400 mg PO Q6H PRN (Reason: Pain) acetaminophen [Tylenol Arthritis Pain] 650 mg Tablet Extended Release 650 mg PO Q12H PRN (Reason: Pain) Janet Back and Body 500-32.5 mg Tablet 1 tab PO UD PRN (Reason: Pain) Sylvester/Other Patient Handouts: DVT Post Op Prevention Admission Data Admit Date/Time: 10/21/22 11:47 Attending Provider: Russell Adams Admit Provider: Russell Adams Primary Care Provider: Astrid Hubbard Other Providers: Carlos Gilbert Robert R. ; Martha,Home Health Other Interventions: Discharge Summary Assessment (RN) Last Done: 10/22/22 12:05
== END 2022-10-22 13:04 | disposition home health service (06) ==
LOC: 3E 06:08 → ASU 06:08